=== PATIENT | male | born 1950 | race Caucasian/White ===

== ENCOUNTER 2022-12-21 16:56 | Inpatient (IN) ==
--- NOTE | 2022-12-21 17:57 | XRay Report ---
XR chest 1V portable CLINICAL HISTORY: illness COMPARISON STUDY: No previous studies for comparison. FINDINGS: Patient is rotated. Right shoulder arthroplasty is incidentally noted. No pneumothorax or p leural effusion is present. There is no consolidation or evidence for pulmonary edema. Minimal left b asilar opacity favors atelectasis. IMPRESSION: No acute cardiopulmonary findings. ACT 112: Negative or not required by law. Electronically signed by: Kamar Elizalde M.D. 12/21/2022 5:55 PM
[2022-12-21] MEDS ORDERED: SODIUM CHLORIDE 0.9% 1000ML 1,000 ML IV ONE (19:38)
--- NOTE | 2022-12-21 19:41 | Emergency Department Note ---
Impression & Plan SBO (small bowel obstruction) ADMIT ED Provider Note HPI: The patient is a 72-year-old gentleman with history of stroke in October 2022, [facility] department with his son and at the bedside over concern for declining ambulatory status, weight loss, and inability to tolerate p.o. intake over the past several weeks. Nataly shaffer was discharged from [facility] about 2 weeks ago, he has not been doing well at home according to family. He has been able to eat only small amounts of food, frequently has vomiting. He has fallen 5-6 times according to his . On arrival here to the ED the patient is hemodynamically stable, he is alert, he is an overall poor historian and family is serving most of the history. They went to see the patient's PCP today and advised to come to the emergency department to be assessed for his symptoms and possible placement at the request of family and at the advice of his PCP. ROS: - Per HPI *Outpatient medications and allergy history reviewed. *Pertinent external medical records reviewed. 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 Mild bilateral lower lobe atelectasis. Normal cardiac size. Mild atherosclerotic disease of aorta with no aneurysm or dissection. Unremarkable stomach with minimal hiatal hernia. Nonvisualized gallbladder suggestive of prior cholecystectomy or severe contraction. Otherwise normal liver and biliary system. Normal spleen and pancreas. Normal bilateral adrenal glands. Right simple renal cysts, largest seen in the lower pole measuring 2.4 cm. Otherwise normal right kidney. Normal left kidney. Mild distention of some of the proximal small bowel loops up to 2.9 cm, concerning for very early small bowel obstruction versus localized ileus. Diverticulosis more so through the sigmoid with no signs of diverticulitis. The appendix is normal. Normal urinary bladder. Mild prostate enlargement. Mild bilateral fat-containing inguinal hernias, right larger than left. Degenerative disease of the spine. Radiologist: Ping Ruffin MD Medical Decision Making: Patient presented to the emergency department with some generalized decline at home over the past several weeks, he has had some ambulatory dysfunction, generally not tolerating p.o. intake very well according to and son at the bedside. On arrival here to the ED the patient is hemodynamically stable, he is otherwise in no acute distress, he is alert and at his baseline mentation on arrival. IV is established, lab work obtained, CT imaging of the abdomen pelvis was ordered. Patient was given a normal saline bolus. CT imaging of the abdomen pelvis shows possible early small bowel obstruction versus localized ileus. This is likely the source of the patient's diminished p.o. intake. Appendix appears normal. Lab work otherwise does not show any critical findings, CBC shows stable hemoglobin, no leukocytosis. No critical electrolyte abnormalities are noted. On reassessment patient appears well, family states that they are concerned that they are unable to take care of him at home, they are requesting admission for possible placement which I think is reasonable given his decline over the past several weeks in addition to finding of possible small bowel obstruction versus ileus on CT imaging. Patient has not had any active vomiting here in the ED therefore will avoid NG tube placement at this time. Case was discussed with the on-call hospitalist for [facility], Dr. Britton, the patient was placed for admission in stable condition. Consultants: Hospitalist service, Dr. Tsang Disposition discussion held by myself with: Patient, at bedside, son at bedside Diagnosis: 1. Ambulatory dysfunction, acute 2. Nausea and vomiting, diminished p.o. intake 3. Early small bowel obstruction versus ileus on CT imaging 4. History of stroke Disposition: Admission Blake Maya DO Emergency Medicine Past Med/Surg History Medical History (Updated 12/21/22 @ 23:34 by Blake Maya DO) Diabetes Hypertension Social History (Updated 11/09/22 @ 20:19 by Romana Lisa MD) Smoking Status: Never smoker Preferred Language: Sami marital status: Feels Safe at Home: Yes Allergies Allergies Allergy/AdvReac Type Severity Reaction Status Date / Time bee venom protein (honey bee) Allergy Anaphylaxis Verified 12/21/22 20:00 codeine Allergy Anaphylaxis Verified 12/21/22 20:00 Home Meds Home Medications Medication Instructions Recorded Confirmed aspirin 81 mg tablet,delayed 81 mg PO QAM 12/21/22 12/21/22 release atorvastatin 40 mg tablet 40 mg PO QAM 12/21/22 12/21/22 celecoxib 200 mg capsule 200 mg PO BID 12/21/22 12/21/22 empagliflozin 10 mg tablet 10 mg PO QAM 12/21/22 12/21/22 lisinopril 10 mg tablet 5 mg PO QAM 12/21/22 12/21/22 metformin 500 mg tablet 500 mg PO BIDWMEAL 12/21/22 12/21/22 ropinirole 2 mg tablet 3 mg PO HS 12/21/22 12/21/22 tamsulosin 0.4 mg capsule 0.4 mg PO QAM 12/21/22 12/21/22 Results & Data (ED) Vital Signs Vital Signs - 24 hr 12/21/22 17:16 Temperature 36.7 C Temperature Source Temporal Artery Scan Pulse Rate 86 Respiratory Rate 20 Respiratory Effort / Characteristics Non-Labored Spontaneous Respiratory Depth Normal Respiratory Pattern Regular Blood Pressure 103/70 Blood Pressure Mean 81 Pulse Oximetry 92 Oxygen Delivery Method Room Air Sepsis Recent Fever Within 48 Hours No Sepsis New/Unexplained Change in Mental Status No Sepsis Action Taken by Nursing No Action Required Laboratory Data 12/21/22 19:57 12/21/22 19:57 Lab Results 12/21/22 12/21/22 12/21/22 Range/Units 19:57 19:57 20:20 WBC 7.71 (4.8-10.8) K/ul RBC 5.32 (4.70-6.10) M/uL Hgb 16.8 (14.0-18.0) g/dl Hct 47.9 (42.0-52.0) % MCV 90.0 (80.0-100.0) fL MCH 31.6 (25.0-34.0) pg MCHC 35.1 (32.0-36.0) g/dL RDW Std Deviation 46.1 (36.4-46.3) fL RDW Coeff of Sergio 14.1 (11.5-14.5) % Plt Count 212 (130-400) K/uL MPV 9.8 (9.4-12.4) fL Immature Gran % (Auto) 0.5 % Neut % (Auto) 73.4 % Lymph % (Auto) 16.0 % Rock % (Auto) 8.3 % Eos % (Auto) 0.9 % Baso % (Auto) 0.9 % Neut # (Auto) 5.66 (1.40-6.50) K/uL Lymph # (Auto) 1.23 (1.2-3.4) K/uL Rock # (Auto) 0.64 H (0.11-0.59) K/uL Eos # (Auto) 0.07 (0-0.50) K/uL Baso # (Auto) 0.07 (0-0.2) K/uL Immature Gran # (Auto) 0.04 (0.01-0.20) K/uL Sodium 136 (136-145) mmol/L Potassium 4.9 (3.5-5.1) mmol/L Chloride 101 (98-107) mmol/L Carbon Dioxide 26 (21-32) mmol/L Anion Gap 9 (3-11) BUN 36 H (6-23) mg/dl Creatinine 1.29 (0.6-1.4) mg/dl Est Cr Clr Drug Dosing Not Reportable Est GFR ( Amer) 62.9 ml/min Est GFR (Non-Af Amer) 54.3 ml/min BUN/Creatinine Ratio 27.9 H (10-20) Glucose 125 H (70-99(Fasting)) mg/dl Calcium 10.6 H (8.5-10.1) mg/dl Total Bilirubin 4.2 H (0.2-1.0) mg/dl AST 31 (13-39) U/L ALT 58 H (7-52) U/L Alkaline Phosphatase 100 (34-104) U/L Total Protein 7.8 (6.0-8.3) gm/dl Albumin 4.4 (3.4-5.0) gm/dl Globulin 3.4 (2.5-4.0) gm/dl Albumin/Globulin Ratio 1.3 (0.9-2) SARS-CoV-2 (PCR) NEGATIVE (Negative) Administered Medications Discontinued Medications Sodium Chloride (Nss 1000ml) 1,000 mls @ 999 mls/hr IV .Q1H1M ONE Stop: 12/21/22 20:38 Last Admin: 12/21/22 20:06 Dose: 999 mls/hr Documented By: RDMamie Ioversol (Optiray 350 100ml) 85 ml IV ONCE ONE Stop: 12/21/22 21:21 Last Admin: 12/21/22 21:20 Dose: 85 ml Documented By: EDK Imaging Data Radiologist's Impression: Chest X-Ray 12/21/22 17:19 XR chest 1V portable CLINICAL HISTORY: illness COMPARISON STUDY: No previous studies for comparison. FINDINGS: Patient is rotated. Right shoulder arthroplasty is incidentally noted. No pneumothorax or pleural effusion is present. There is no consolidation or evidence for pulmonary edema. Minimal left basilar opacity favors atelectasis. IMPRESSION: No acute cardiopulmonary findings. ACT 112: Negative or not required by law. Electronically signed by: Kamar Elizalde M.D. 12/21/2022 5:55 PM Discharge Plan Visit Data Chief Complaint: Referred by Doctor Stated Complaint: VOMIT,UNABLE TO EAT,DIZZY,REF BY DOC ED Provider: Blake Maya Discharge Problem: SBO (small bowel obstruction) Patient Disposition: Admitted As Inpatient Forms Stand Alone Forms: [facility], Virtual Emergency Department, Important Visit Information Prescriptions Prescriptions: No Action celecoxib 200 mg Capsule 200 mg PO BID atorvastatin 40 mg Tablet 40 mg PO QAM metformin 500 mg Tablet 500 mg PO BIDWMEAL aspirin [Aspirin Low-Strength] 81 mg Tablet,Delayed Release (Dr/Ec) 81 mg PO QAM tamsulosin 0.4 mg Capsule 0.4 mg PO QAM ropinirole 2 mg Tablet 3 mg PO HS Rx Instructions: take 1.5 tablets at bedtime lisinopril 10 mg Tablet 5 mg PO QAM Rx Instructions: 1/2 tablet dose empagliflozin 10 mg Tablet 10 mg PO QAM Referrals Referrals: Garth Jerome DO [Primary Care Provider] -
[2022-12-21 20:21] LABS: Basophils # (auto) 0.07 K/uL (0-0.2); Basophils % (auto) 0.9 %; Eosinophils # (auto) 0.07 K/uL (0-0.50); Eosinophils % (auto) 0.9 %; Hematocrit (blood only) 47.9 % (42.0-52.0); Hemoglobin 16.8 g/dl (14.0-18.0); Immature Granulocytes # (auto) 0.04 K/uL (0.01-0.20); Immature Granulocytes % (auto) 0.5 %; Lymphocytes # (auto) 1.23 K/uL (1.2-3.4); Mean Corpuscular Hemoglobin 31.6 pg (25.0-34.0); Mean Corpuscular Hgb Conc 35.1 g/dL (32.0-36.0); Mean Platelet Volume 9.8 fL (9.4-12.4); Monocytes # (auto) 0.64 K/uL (0.11-0.59); Monocytes % (auto) 8.3 %; Neutrophils # (auto) 5.66 K/uL (1.40-6.50); Neutrophils % (auto) 73.4 %; Platelet Count 212 K/uL (130-400); RDW Coefficient of Variation 14.1 % (11.5-14.5); RDW Standard Deviation 46.1 fL (36.4-46.3); Red Blood Count 5.32 M/uL (4.70-6.10); White Blood Count 7.71 K/ul (4.8-10.8)
[2022-12-21 20:31] LABS: Alanine Aminotransferase 58 U/L (7-52); Albumin Globulin Ratio 1.3 (0.9-2); Albumin Level 4.4 gm/dl (3.4-5.0); Alkaline Phosphatase 100 U/L (34-104); Anion Gap 9 (3-11); Aspartate Aminotransferase 31 U/L (13-39); BUN Creatinine Ratio 27.9 (10-20); Bilirubin,Total 4.2 mg/dl (0.2-1.0); Blood Urea Nitrogen 36 mg/dl (6-23); Calcium 10.6 mg/dl (8.5-10.1); Carbon Dioxide 26 mmol/L (21-32); Chloride 101 mmol/L (98-107); Est GFR (African American) 62.9 ml/min; Est GFR (Non-African American) 54.3 ml/min; Globulin 3.4 gm/dl (2.5-4.0); Glucose 125 mg/dl (70-99(Fasting)); Potassium 4.9 mmol/L (3.5-5.1); Sodium 136 mmol/L (136-145); Total Protein 7.8 gm/dl (6.0-8.3)
[2022-12-21] MEDS ORDERED: OPTIRAY 350 100ml IV ONE (21:20)
[2022-12-21] MEDS ORDERED: SODIUM CHLORIDE 0.9% 1000ML 1,000 ML IV STA (23:11)
[2022-12-22 00:15] LABS: Magnesium 2.1 mg/dl (1.7-2.4)
--- NOTE | 2022-12-22 00:28 | History & Physical Report ---
Date of Service December 22, 2022 Assessment & Plan (1) Vomiting: Plan: Ileus versus beginning partial SBO on initial CT read Patient currently nontoxic Dizziness symptoms Rule out orthostasis given borderline BP recent ischemic CVA hypertension, BP on the lower side PVD status post surgery mild aortic stenosis DM2 on oral medications, suboptimal control as of recent hemoglobin A1c of 7.9 last October 2022 restless leg syndrome on ropinirole Ambulatory dysfunction post CVA post recent rehab stay BPH on Flomax OBS GMF Bowel rest for now, IVF Follow official CT results General Surgery consult if partial SBO on official CT NGT decompression if with subsequent emesis Check orthostatic vitals Decrease maintenance lisinopril dose for now Consider decreasing maintenance ropinirole dose if orthostatics vitals positive and patient still symptomatic with lower lisinopril dose. Basal bolus insulin, ISS BG goal 1 10-1 40, carb count coverage PT OT eval DVT prophylaxis. Lovenox subcu Full code Patient requests for his to be updated of progress. Ms. Deyanira Esparza, contact #[phone]. Text document was generated using [employer] voice recognition software. It may contain grammatical or spelling errors. Kindly contact undersigned for clarification of any documentation item in question. History of Present Illness Chief Complaint: Vomiting, Weakness Primary Care Provider: Garth Jerome DO History obtained from patient and records. Medical history significant for recent ischemic stroke, hypertension, PVD status post surgery, mild aortic stenosis, DM2 on oral medications, restless leg syndrome, BPH. Last confinement [facility] November 08, 2022 to November 13, 2022 for acute right MCA stroke and possible dissection of the right internal carotid artery angioplasty with stent placement and thrombectomy. Stent reocclusion during hospital stay. Mild aortic stenosis found on 2D echo. Hemoglobin A1c noted to be 7.9. Patient discharged to [facility] facility where he stayed for 2 weeks before returning home. Since being home the last few weeks, patient appetite not the best. Emesis without abdominal pain. No headache, no chest pain, no SOB. Syncope, no seizures. Good BM as per patient. Some depression but denies suicidality. Patient falling a lot at home after standing. Dizziness described as lightheadedness preceding falls. Patient brought to ER for evaluation. Medical History as above Surgical History : Umbilical hernia repair, cholecystectomy, shoulder surgery, knee replacements Family History : Breast cancer Personal/Social history : Non-smoker, occasional EtOH intake, [employer] employee Allergies Allergy/AdvReac Type Severity Reaction Status Date / Time bee venom protein (honey bee) Allergy Anaphylaxis Verified 12/21/22 20:00 codeine Allergy Anaphylaxis Verified 12/21/22 20:00 Home Medications Medication Instructions Recorded Confirmed Type aspirin 81 mg tablet,delayed 81 mg PO QAM 12/21/22 12/21/22 History release atorvastatin 40 mg tablet 40 mg PO QAM 12/21/22 12/21/22 History celecoxib 200 mg capsule 200 mg PO BID 12/21/22 12/21/22 History empagliflozin 10 mg tablet 10 mg PO QAM 12/21/22 12/21/22 History lisinopril 10 mg tablet 5 mg PO QAM 12/21/22 12/21/22 History metformin 500 mg tablet 500 mg PO BIDWMEAL 12/21/22 12/21/22 History ropinirole 2 mg tablet 3 mg PO HS 12/21/22 12/21/22 History tamsulosin 0.4 mg capsule 0.4 mg PO QAM 12/21/22 12/21/22 History Past Med/Surg History Medical History (Updated 12/22/22 @ 05:46 by Quincy Blair MD) Diabetes Hypertension Social History (Updated 11/09/22 @ 20:19 by Romana Lisa MD) Smoking Status: Never smoker Hx Alcohol Use: No Hx Substance Use: No Preferred Language: [place] Communication Ability: Effective 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 Beliefs That Will Affect Care: None marital status: Current Living Situation: Spouse Other Information That Helps Us Care for You: No Feels Safe at Home: Yes Safety Concerns: Feels Safe At This Time Assistive Devices: Contacts, Hearing Aid - Left, Hearing Aid - Right and Walker Review of Systems Review of Systems: As per HPI, all other systems reviewed and negative Physical Exam Physical Exam: GENERAL: Comfortable, pleasant, mild dysarthria, no respiratory distress SKIN: Normal color, warm HEENT: [place] palpebral conjunctivae, no ptosis, flattened left nasolabial fold (chronic), dry buccal mucosa NECK : Supple, no tenderness CHEST : CTA, no tenderness HEART : RRR, no obvious murmurs ABDOMEN: Some distention, nontender EXTREMITIES : No LE swelling/tenderness, no other conspicuous deformities noted NEUROLOGIC : Coherent, flattened left nasolabial fold (chronic), mild dysarthria, MMTs : RUE/RLE 4/5, LUE/LLE 3/5; gait and stance not assessed Results & Data Results & Data ([facility]) Vital Signs (Past 12 Hours) Vital Signs Temp Pulse Resp BP Pulse Ox O2 Del Method 12/21/22 17:16 36.7 C 86 20 103/70 92 Room Air Laboratory Results Laboratory Results WBC 7.71 K/ul (4.8-10.8) 12/21/22 19:57 RBC 5.32 M/uL (4.70-6.10) 12/21/22 19:57 Hgb 16.8 g/dl (14.0-18.0) 12/21/22 19:57 Hct 47.9 % (42.0-52.0) 12/21/22 19:57 MCV 90.0 fL (80.0-100.0) 12/21/22 19:57 MCH 31.6 pg (25.0-34.0) 12/21/22 19:57 MCHC 35.1 g/dL (32.0-36.0) 12/21/22 19:57 RDW Std Deviation 46.1 fL (36.4-46.3) 12/21/22 19:57 RDW Coeff of Sergio 14.1 % (11.5-14.5) 12/21/22 19:57 Plt Count 212 K/uL (130-400) 12/21/22 19:57 MPV 9.8 fL (9.4-12.4) 12/21/22 19:57 Immature Gran % (Auto) 0.5 % 12/21/22 19:57 Neut % (Auto) 73.4 % 12/21/22 19:57 Lymph % (Auto) 16.0 % 12/21/22 19:57 [place] % (Auto) 8.3 % 12/21/22 19:57 Eos % (Auto) 0.9 % 12/21/22 19:57 Baso % (Auto) 0.9 % 12/21/22 19:57 Neut # (Auto) 5.66 K/uL (1.40-6.50) 12/21/22 19:57 Lymph # (Auto) 1.23 K/uL (1.2-3.4) 12/21/22 19:57 [place] # (Auto) 0.64 K/uL (0.11-0.59) H 12/21/22 19:57 Eos # (Auto) 0.07 K/uL (0-0.50) 12/21/22 19:57 Baso # (Auto) 0.07 K/uL (0-0.2) 12/21/22 19:57 Immature Gran # (Auto) 0.04 K/uL (0.01-0.20) 12/21/22 19:57 Sodium 136 mmol/L (136-145) 12/21/22 19:57 Potassium 4.9 mmol/L (3.5-5.1) 12/21/22 19:57 Chloride 101 mmol/L (98-107) 12/21/22 19:57 Carbon Dioxide 26 mmol/L (21-32) 12/21/22 19:57 Anion Gap 9 (3-11) 12/21/22 19:57 BUN 36 mg/dl (6-23) H 12/21/22 19:57 Creatinine 1.29 mg/dl (0.6-1.4) 12/21/22 19:57 Est Cr Clr Drug Dosing Not Reportable 12/21/22 19:57 Est GFR ( Amer) 62.9 ml/min 12/21/22 19:57 Est GFR (Non-Af Amer) 54.3 ml/min 12/21/22 19:57 BUN/Creatinine Ratio 27.9 (10-20) H 12/21/22 19:57 Glucose 125 mg/dl (70-99(Fasting)) H 12/21/22 19:57 Calcium 10.6 mg/dl (8.5-10.1) H 12/21/22 19:57 Magnesium 2.1 mg/dl (1.7-2.4) 12/21/22 19:57 Total Bilirubin 4.2 mg/dl (0.2-1.0) H 12/21/22 19:57 AST 31 U/L (13-39) 12/21/22 19:57 ALT 58 U/L (7-52) H 12/21/22 19:57 Alkaline Phosphatase 100 U/L (34-104) 12/21/22 19:57 Total Protein 7.8 gm/dl (6.0-8.3) 12/21/22 19:57 Albumin 4.4 gm/dl (3.4-5.0) 12/21/22 19:57 Globulin 3.4 gm/dl (2.5-4.0) 12/21/22 19:57 Albumin/Globulin Ratio 1.3 (0.9-2) 12/21/22 19:57 SARS-CoV-2 (PCR) NEGATIVE (Negative) 12/21/22 20:20 Impressions Chest X-Ray 12/21/22 17:19 XR chest 1V portable CLINICAL HISTORY: illness COMPARISON STUDY: No previous studies for comparison. FINDINGS: Patient is rotated. Right shoulder arthroplasty is incidentally noted. No pneumothorax or pleural effusion is present. There is no consolidation or evidence for pulmonary edema. Minimal left basilar opacity favors atelectasis. IMPRESSION: No acute cardiopulmonary findings. ACT 112: Negative or not required by law. Electronically signed by: Kamar Elizalde M.D. 12/21/2022 5:[address] abdomen pelvis initial read: Bilateral lower lobe atelectasis. Normal cardiac size. Mild atherosclerotic disease of aorta with no aneurysm or dissection. Unremarkable stomach with minimal hiatal hernia. Nonvisualized gallbladder suggestive of prior cholecystectomy or severe contraction. Otherwise normal liver and biliary system. Normal spleen and pancreas. Normal bilateral adrenal glands. Right simple renal cysts, largest seen in the lower pole measuring 2.4 cm. Otherwise normal right kidney. Normal left kidney. Mild distention of some of the proximal small bowel loops up to 2.9 cm, concerning for very early small bowel obstruction versus localized ileus. Diverticulosis more so through the sigmoid with no signs of diverticulitis. The appendix is normal. Normal urinary bladder. Mild prostate enlargement. Mild bilateral fat-containing inguinal hernias, right larger than left. Degenerative disease of the spine. EKG as per my interpretation :Rate 70, NSR, LAD, LAFB, LVH, no ischemia
[2022-12-22] MEDS ORDERED: GLUCAGON FOR INJ 1 MG VIAL SQ PRN (03:59)
[2022-12-22] MEDS ORDERED: DEXTROSE 50% 50 ML SYRINGE IV PRN (03:59)
[2022-12-22] MEDS ORDERED: CARBOHYDRATES FOR HYPOGLYCEMIA PO PRN (03:59)
[2022-12-22] MEDS ORDERED: GLUCOSE 40% GEL 15 GM TUBE PO PRN (03:59)
[2022-12-22] MEDS ORDERED: GLUCOSE 10 TAB/TUBE PO PRN (03:59)
[2022-12-22] MEDS ORDERED: INSULIN ASPART PER UNIT SC SCH (04:30)
[2022-12-22] MEDS: SODIUM CHLORIDE 0.9% 1000ML 1,000 ML IV SCH ×2 (05:54→18:03)
[2022-12-22] MEDS: INSULIN ASPART PER UNIT SC SCH ×4 (06:04→20:18)
[2022-12-22 06:11] LABS: Appearance Urine Clear (Clear); Bilirubin Urine Negative (Negative); Blood Urine Negative (Negative); Color Urine Yellow; Glucose Urine UA 1+ (Negative); Ketones Urine 2+ (Negative); Leukocyte Esterase Urine Negative (Negative); Nitrite Urine Negative (Negative); Protein Urine Negative (Negative); Specific Gravity Urine > 1.045 (1.000-1.030); Urobilinogen Urine Negative (Negative)
[2022-12-22 06:34] LABS: Basophils # (auto) 0.07 K/uL (0-0.2); Basophils % (auto) 0.8 %; Eosinophils # (auto) 0.26 K/uL (0-0.50); Eosinophils % (auto) 3.1 %; Hemoglobin 15.2 g/dl (14.0-18.0); Immature Granulocytes # (auto) 0.03 K/uL (0.01-0.20); Immature Granulocytes % (auto) 0.4 %; Lymphocytes # (auto) 1.23 K/uL (1.2-3.4); Lymphocytes % (auto) 14.8 %; Mean Corpuscular Hemoglobin 32.1 pg (25.0-34.0); Mean Corpuscular Hgb Conc 35.3 g/dL (32.0-36.0); Mean Corpuscular Volume 90.9 fL (80.0-100.0); Mean Platelet Volume 9.8 fL (9.4-12.4); Monocytes # (auto) 0.69 K/uL (0.11-0.59); Monocytes % (auto) 8.3 %; Neutrophils # (auto) 6.02 K/uL (1.40-6.50); Neutrophils % (auto) 72.6 %; Platelet Count 178 K/uL (130-400); RDW Standard Deviation 46.5 fL (36.4-46.3); Red Blood Count 4.73 M/uL (4.70-6.10)
[2022-12-22 06:51] LABS: BUN Creatinine Ratio 26.1 (10-20); Calcium 9.6 mg/dl (8.5-10.1); Creatinine Clr Calc Pharmacy 58.2 ml/min; Est GFR (African American) 72.3 ml/min; Est GFR (Non-African American) 62.3 ml/min; Potassium 4.6 mmol/L (3.5-5.1)
[2022-12-22] MEDS: ENOXAPARIN INJ 40 MG/0.4 ML SYR SQ SCH (08:08)
[2022-12-22] MEDS: lisinopril 2.5 MG TAB PO SCH (08:08)
[2022-12-22] MEDS: ASPIRIN 81 MG ECTAB PO SCH (08:08)
[2022-12-22] MEDS: TAMSULOSIN HCL 0.4 MG CAP PO SCH (08:08)
[2022-12-22] MEDS: ATORVASTATIN 40 MG TAB PO SCH (08:08)
[2022-12-22] MEDS: LANTUS PER UNIT CHARGE SQ SCH (08:52)
[2022-12-22] MEDS ORDERED: lisinopril 5 MG TAB PO SCH (09:00)
--- NOTE | 2022-12-22 09:16 | CT Scan Report ---
ABDOMEN AND PELVIS CT WITH IV CONTRAST CT DOSE: 503.65 mGy.cm HISTORY: Nausea. Vomiting., can not eat, eval for SBO TECHNIQUE: Multiaxial CT images of the abdomen and pelvis were performed following the use of intrave nous contrast. A dose lowering technique was utilized adhering to the principles of ALARA. COMPARISON STUDY: None. FINDINGS: Mild dependent changes seen within the lung bases. No pneumoperitoneum. No pneumatosis. No acute fractures identified. There is a small hiatus hernia. Cholecystectomy. The liver, spleen, adren al glands, and pancreas are unremarkable. No hydronephrosis. The left kidney enhances normally. There are 2 hypodense lesions within the right kidney which favor cysts. The largest in the lower pole iris sures 2.2 cm. No retroperitoneal lymphadenopathy. The main portal vein is patent. There is a left cir cumaortic renal vein. The bladder is unremarkable. The prostate gland is enlarged. There are fat-cont aining bilateral inguinal hernias. Colonic diverticulosis. No evidence for acute diverticulitis. No b owel wall thickening or obstruction. Normal appendix. IMPRESSION: 1. No bowel wall thickening or obstruction. 2. Normal appendix. 3. Colonic diverticulosis. No evidence for acute diverticulitis. 4. Prostatomegaly. ACT 112: Negative or not required by law. Electronically signed by: Rahul Markham M.D. 12/22/2022 9:15 AM
[2022-12-22] MEDS ORDERED: SODIUM CHLORIDE 0.9% 1000ML 1,000 ML IV SCH (09:30)
--- NOTE | 2022-12-22 15:25 | Hospitalist Progress Note ---
Date of Service December 22, 2022 Assessment & Plan (1) Vomiting: Plan: Nausea and vomiting Likely secondary to dysphagia as sequelae of recent CVA Bowel obstruction ruled out --CT ABD:No bowel wall thickening or obstruction. Normal appendix. Colonic di verticulosis. No evidence for acute diverticulitis. Prostatomegaly. 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 meds HbA1c 7.19 October 2022 Continue insulin while hospitalized Restless leg syndrome on ropinirole DVT Px: Lovenox SQ Code Status Full code Admission and Anticipated Discharge Date Admission Date: December 22, 2022 Subjective Patient is seen and examined at bedside Nausea, vomiting resolved States having dysphagia since having CVA Denies any chest pain, dyspnea, dizziness, abdominal pain No other complaints Review of Systems Review of Systems: All systems reviewed & are unremarkable except as noted in Subjective Physical Exam Physical Exam: Physical Exam: Vitals signs as noted above General Appearance:Moderately built and nourished, no apparent distress Head: normocephalic, Atraumatic Eyes: normal inspection, EOMI Neck: supple, Trachea midline Respiratory/Chest: Normal breath sounds, CTA, No accessory muscle use Cardiovascular: S1, S2, + murmur Abdomen/GI:Soft, Non tender, Bowel sounds present Extremities/Musculoskeletal:normal inspection, no edema Neurologic/Psych:AAOX3, Mild L LE weakness 4/5 Skin: normal color, warm Results & Data Results & Data ([facility]) Vital Signs (Past 12 Hours) Vital Signs Temp Pulse Resp BP Pulse Ox O2 Del Method 12/22/22 14:28 36.7 C 78 16 112/74 94 Room Air 12/22/22 07:25 36.7 C 55 L 16 101/65 96 Room Air 12/22/22 03:45 36 C L 64 16 134/81 93 Room Air Laboratory Results Short CBC 12/21/22 12/22/22 Range/Units 19:57 06:12 WBC 7.71 8.30 (4.8-10.8) K/ul Hgb 16.8 15.2 (14.0-18.0) g/dl Hct 47.9 43.0 (42.0-52.0) % Plt Count 212 178 (130-400) K/uL BMP 12/21/22 12/22/22 19:57 06:12 Sodium 136 137 Potassium 4.9 4.6 Chloride 101 105 Carbon Dioxide 26 24 BUN 36 H 30 H Creatinine 1.29 1.15 Glucose 125 H 96 Calcium 10.6 H 9.6 Liver Function 12/21/22 Range/Units 19:57 Total Bilirubin 4.2 H (0.2-1.0) mg/dl AST 31 (13-39) U/L ALT 58 H (7-52) U/L Alkaline Phosphatase 100 (34-104) U/L Albumin 4.4 (3.4-5.0) gm/dl Urine 12/22/22 Range/Units 06:00 Urine Color Yellow Urine Appearance Clear (Clear) Urine pH 5.0 (4.5-7.5) Ur Specific [place] > 1.045 H (1.000-1.030) Urine Protein Negative (Negative) Urine Glucose (UA) 1+ H (Negative)
[2022-12-22] MEDS ORDERED: Nursing to Pharmacy Communication SCH (17:00)
[2022-12-22] MEDS ORDERED: SODIUM CHLORIDE 0.9% 1000ML 1,000 ML IV ONE (19:19)
[2022-12-22] MEDS: rOPINIRole HCL 1 MG TABLET PO SCH (20:15)
--- NOTE | 2022-12-22 22:40 | Electrocardiogram Report ---
Test Reason : Blood Pressure : / mmHG Vent. Rate : 071 BPM Atrial Rate : 071 BPM P-R Int : 192 ms QRS Dur : 126 ms QT Int : 418 ms P-R-T Axes : 066 -50 105 degrees QTc Int : 454 ms Poor data quality, interpretation may be adversely affected Normal sinus rhythm Left axis deviation Left ventricular hypertrophy with QRS widening and repolarization abnormality Possible Anterolateral infarct , age undetermined Abnormal ECG When compared with ECG of 08-NOV-2022 08:19, Borderline criteria for Anterolateral infarct are now Present Confirmed by Tonio Monroy ([id number]) on 12/22/2022 10:40:11 PM Referred By: Garth Jerome Confirmed By:Tonio Monroy
[2022-12-22] MEDS: PROMETHAZINE HCL 12.5 MG in SODIUM CHLORIDE 0.9% 50 ML IV PRN (23:43)
[2022-12-23 06:27] LABS: Hematocrit (blood only) 39.6 % (42.0-52.0); Hemoglobin 13.8 g/dl (14.0-18.0); Mean Corpuscular Hemoglobin 31.6 pg (25.0-34.0); Mean Corpuscular Hgb Conc 34.8 g/dL (32.0-36.0); Mean Corpuscular Volume 90.6 fL (80.0-100.0); Mean Platelet Volume 9.9 fL (9.4-12.4); Platelet Count 155 K/uL (130-400); RDW Coefficient of Variation 13.9 % (11.5-14.5); RDW Standard Deviation 46.3 fL (36.4-46.3); Red Blood Count 4.37 M/uL (4.70-6.10); White Blood Count 6.97 K/ul (4.8-10.8)
[2022-12-23 06:42] LABS: BUN Creatinine Ratio 25.3 (10-20); Calcium 9.2 mg/dl (8.5-10.1); Creatinine Clr Calc Pharmacy 76.9 ml/min; Est GFR (African American) 98.5 ml/min; Magnesium 1.7 mg/dl (1.7-2.4); Potassium 4.2 mmol/L (3.5-5.1)
[2022-12-23] MEDS: ENOXAPARIN INJ 40 MG/0.4 ML SYR SQ SCH (08:59)
[2022-12-23] MEDS: lisinopril 2.5 MG TAB PO SCH (08:59)
[2022-12-23] MEDS: INSULIN ASPART PER UNIT SC SCH ×4 (08:59→21:22)
[2022-12-23] MEDS: ATORVASTATIN 40 MG TAB PO SCH (08:59)
[2022-12-23] MEDS: ASPIRIN 81 MG ECTAB PO SCH (08:59)
[2022-12-23] MEDS: TAMSULOSIN HCL 0.4 MG CAP PO SCH (08:59)
[2022-12-23] MEDS: LANTUS PER UNIT CHARGE SQ SCH (09:00)
--- NOTE | 2022-12-23 17:00 | Hospitalist Progress Note ---
Date of Service December 23, 2022 Assessment & Plan (1) Vomiting: Plan: Nausea and vomiting Likely secondary to dysphagia as sequelae of recent CVA Bowel obstruction ruled out --CT ABD:No bowel wall thickening or obstruction. Normal appendix. Colonic di verticulosis. No evidence for acute diverticulitis. Prostatomegaly. -- Aspiration precautions Did well with speech therapy Advance to regular diet today If dysphagia persist, will consider GI evaluation Dizziness DD: Due to recent CVA Vs orthostasis Check Orthostatics Asymptomatic currently Multiple falls Ambulatory dysfunction Due to left-sided weakness from CVA Fall precautions PT OT: Needs Rehab Recent right MCA occlusion S/P MCA mechanical thrombectomy Right internal carotid artery occlusion S/P angioplasty and stent Left hemiplegia secondary to above Dysarthria secondary to above Continue aspirin, statin Hypertension Blood pressure relatively low Continue lisinopril with holding parameters BPH On tamsulosin DM II Hold p.o. meds HbA1c 7.19 October 2022 Continue insulin while hospitalized Restless leg syndrome on ropinirole DVT Px: Lovenox SQ Code Status Full code Admission and Anticipated Discharge Date Admission Date: December 23, 2022 Subjective Patient is seen and examined at bedside States feeling well today Generalized weakness improving Had speech therapy evaluation today Denies any chest pain, dyspnea, dizziness, abdominal pain Review of Systems 2 Review of Systems: All systems reviewed & are unremarkable except as noted in Subjective Physical Exam Physical Exam: Physical Exam: Vitals signs as noted above General Appearance:Moderately built and nourished, no apparent distress Head: normocephalic, Atraumatic Eyes: normal inspection, EOMI Neck: supple, Trachea midline Respiratory/Chest: Normal breath sounds, CTA, No accessory muscle use Cardiovascular: S1, S2, + murmur Abdomen/GI:Soft, Non tender, Bowel sounds present Extremities/Musculoskeletal:normal inspection, no edema Neurologic/Psych:AAOX3, Mild L LE weakness 4/5 Skin: normal color, warm Results & Data Results & Data ([facility]) Vital Signs (Past 12 Hours) Vital Signs Temp Pulse Resp BP Pulse Ox O2 Del Method 12/23/22 14:30 36.5 C 76 16 110/65 94 Room Air 12/23/22 07:28 36.5 C 57 L 16 117/70 95 Room Air Laboratory Results Short CBC 12/23/22 Range/Units 06:08 WBC 6.97 (4.8-10.8) K/ul Hgb 13.8 L (14.0-18.0) g/dl Hct 39.6 L (42.0-52.0) % Plt Count 155 (130-400) K/uL BMP 12/23/22 06:08 Sodium 138 Potassium 4.2 Chloride 108 H Carbon Dioxide 23 BUN 22 Creatinine 0.87 Glucose 97 Calcium 9.2
[2022-12-23] MEDS: rOPINIRole HCL 1 MG TABLET PO SCH (20:16)
[2022-12-24] MEDS: INSULIN ASPART PER UNIT SC SCH ×4 (08:32→21:27)
[2022-12-24] MEDS: ENOXAPARIN INJ 40 MG/0.4 ML SYR SQ SCH (08:33)
[2022-12-24] MEDS: lisinopril 2.5 MG TAB PO SCH (08:33)
[2022-12-24] MEDS: TAMSULOSIN HCL 0.4 MG CAP PO SCH (08:33)
[2022-12-24] MEDS: ASPIRIN 81 MG ECTAB PO SCH (08:33)
[2022-12-24] MEDS: ATORVASTATIN 40 MG TAB PO SCH (08:33)
[2022-12-24] MEDS: LANTUS PER UNIT CHARGE SQ SCH (08:34)
[2022-12-24 08:52] LABS: Hematocrit (blood only) 43.7 % (42.0-52.0); Hemoglobin 15.2 g/dl (14.0-18.0); Mean Corpuscular Hemoglobin 31.7 pg (25.0-34.0); Mean Corpuscular Hgb Conc 34.8 g/dL (32.0-36.0); Platelet Count 179 K/uL (130-400); RDW Coefficient of Variation 14.1 % (11.5-14.5); White Blood Count 6.74 K/ul (4.8-10.8)
[2022-12-24 09:12] LABS: BUN Creatinine Ratio 19.5 (10-20); Calcium 9.7 mg/dl (8.5-10.1); Creatinine Clr Calc Pharmacy 81.6 ml/min; Est GFR (Non-African American) 87.1 ml/min; Potassium 4.3 mmol/L (3.5-5.1)
[2022-12-24] MEDS: POLYETHYLENE (MIRALAX) 17 GM PACK PO SCH (11:55)
[2022-12-24] MEDS: DOCUSATE SODIUM 100 MG CAP PO SCH ×2 (11:55→21:27)
--- NOTE | 2022-12-24 12:25 | Gastrointestinal Consultation ---
Date of Consultation December 24, 2022 Assessment & Plan (1) Dysphagia: Chronic solids dysphagia, worsened w CVA. Of note, his progress notes mention n SBO but I am unable to find suggestion of that on CT results or CXR results. Will plan for EGD tomorrow. Discussed w patient and separately, per pt request, I called his who would like him to undergo EGD. Will hold tomorrow morning's Lovenox. Plan Will plan for EGD tomorrow. Discussed w patient and separately, per pt request, I called his who would like him to undergo EGD. Will hold tomorrow morning's Lovenox. Further recommendations to follow EGD. Supervising Physician Co-Signing Physician Notes I have seen and examined the patient and discussed the management with JANIS Huston. consult for dysphagia. Admitted with weakness. Recent stroke end of 11/01 - with dysphagia to solids primarily. PE as noted above. Suspect his dysphagia is likely secondary to his recent stroke. Will proceed to with EGD to rule out an obstructive etiology tomorrow, hold lovenox, npo after midnite. History of Present Illness Reason for Consultation: Dysphagia Requesting Physician: Cristina Ledesma NP Attending Physician: Fernando Phipps MD History of Present Illness Mr. Teresa Esparza is a 72 yr old male pt of Dr. Queenie bonilla a hx of rHTN, mild , DM-2, RLS and BPH. He experienced an MCA stroke in the end of October and was in rehab at [facility] and back home for weeks now. Since being home, he has had a poor appetite, presented to [facility] on 12/22 for weakness, poor appetite, multiple falls. GI is consulted for dysphagia. According to the pt, this occurs w dry foods and pills about once every day and this morning, he regurgitated yemeni toast soon after swallowing. He asked me to call his and she says that he has had this intermittently for years and it became more frequent since the stroke. He underwent bedside speech eval w/o aspiration and w recommendation for regular diet, thin liquids and aspiration precautions. On ASA 81mg/day at home, Daily Lovenox was started at the time of this admission. No prior EGDs. Allergies Allergy/AdvReac Type Severity Reaction Status Date / Time bee venom protein (honey bee) Allergy Anaphylaxis Verified 12/21/22 20:00 codeine Allergy Anaphylaxis Verified 12/21/22 20:00 Home Medications Medication Instructions Recorded Confirmed Type aspirin 81 mg tablet,delayed 81 mg PO QAM 12/21/22 12/21/22 History release atorvastatin 40 mg tablet 40 mg PO QAM 12/21/22 12/21/22 History celecoxib 200 mg capsule 200 mg PO BID 12/21/22 12/21/22 History empagliflozin 10 mg tablet 10 mg PO QAM 12/21/22 12/21/22 History lisinopril 10 mg tablet 5 mg PO QAM 12/21/22 12/21/22 History metformin 500 mg tablet 500 mg PO BIDWMEAL 12/21/22 12/21/22 History ropinirole 2 mg tablet 3 mg PO HS 12/21/22 12/21/22 History tamsulosin 0.4 mg capsule 0.4 mg PO QAM 12/21/22 12/21/22 History Patient History Medical History (Updated 12/24/22 @ 12:45 by JANIS Jolly) Diabetes Hypertension Social History (Updated 11/09/22 @ 20:19 by Romana Lisa MD) Smoking Status: Never smoker Hx Alcohol Use: No Hx Substance Use: No Preferred Language: Hungarian Communication Ability: Effective 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 No fevers. + 40 lbs weight loss since October Eyes: No eye redness, or pain, no recent vision changes Resp: No SOB, no cough Cardio: No palpitations/irregular beats, no chest pain GI: No abdominal pain, no nausea/vomiting : Denies pain on urination Skin: No jaundice, itching or new rashes Neuro: left leg weakness, "gives out," since the stroke Physical Exam Constitutional: WD/WN, vitals as above (oriented to person, place, time) + generalized weakness Eyes: PERRL, conjunctivae normal, anicteric sclerae ENMT: external ear and nose normal, oropharynx normal Neck: trachea midline, no thyromegaly Respiratory: normal respiratory effort, lungs clear to auscultation Cardiovascular: RRR, no murmur, no edema Gastrointestinal (Abdomen): normal bowel sounds, soft, nontender, no hepatosplenomegaly Musculoskeletal: generalized weakness, mild left leg weakness compared to right, normal/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 Skin: no rashes, warm and dry Neurologic: PERRL, EOMI, accommodation nl, no face palsy, no dysarthria Needs help to sit up in bed. Can roll side to side Psychiatric: A+Ox3, euthymic affect Lymphatic: no cervical or axillary lymphadenopathy Results & Data ([facility]) Vital Signs (Past 12 Hours) Vital Signs Temp Pulse Pulse Resp BP Pulse Ox O2 Del Method 12/24/22 07:43 36.5 C 62 18 126/78 94 Room Air 12/24/22 07:04 70 16 119/73 95 Room Air Laboratory Results WBC 6, Hb 15.2, hct 43, Plts 179, PT 11.0, INR 1.0, Na 137, K 4.3, Cl 106, CO2 21, BN 16, Cr 0.82, Glucose 103. Diagnostic Findings CTAP 12/21/22 w IV contrast 1. No bowel wall thickening or obstruction. 2. Normal appendix. 3. Colonic diverticulosis. No evidence for acute diverticulitis. 4. Prostatomegaly.
--- NOTE | 2022-12-24 13:24 | Hospitalist Progress Note ---
Date of Service December 24, 2022 Assessment & Plan (1) Vomiting: Plan: Nausea and Vomiting Dysphagia CT ABD/pelvis: 1. No bowel wall thickening or obstruction. 2. Normal appendix. 3. Colonic diverticulosis. No evidence for acute diverticulitis. 4. Prostatomegaly. SBO ruled out Nausea and vomiting resolved. Continues to have dysphagia with solids. Patient did well with speech therapy. GI consulted today for ongoing dysphagia, planning on EGD tomorrow Dizziness DD: Due to recent CVA Vs orthostasis Orthostatics positive on 12/22 however now asymptomatic Multiple falls Ambulatory dysfunction Due to left-sided weakness from CVA Fall precautions PT OT: Needs Rehab Recent right MCA occlusion S/P MCA mechanical thrombectomy Right internal carotid artery occlusion S/P angioplasty and stent Left hemiplegia secondary to above Dysarthria secondary to above Continue aspirin, statin Hypertension Blood pressure intermittently low Continue lisinopril with holding parameters BPH On tamsulosin DM II Hold p.o. meds, Lantus and NovoLog per protocol while hospitalized Blood sugars controlled HbA1c 7.19 October 2022 Restless leg syndrome on ropinirole DVT PROPHYLAXIS SQ Lovenox, holding tomorrow's dose due to EGD Admission and Anticipated Discharge Date Admission Date: December 23, 2022 Supervising Physician Co-Signing Physician Notes Patient is seen and examined at bedside. States having difficulty swallowing solid food. Denies any issues with liquids. Chronic left-sided weakness improving. No other complaints. Denies any chest pain, dyspnea, dizziness, nausea, abdominal pain. Physical Exam: Vitals signs as noted above General Appearance:Moderately built and nourished, no apparent distress Head: normocephalic, Atraumatic Eyes: normal inspection, EOMI Neck: supple, Trachea midline Respiratory/Chest: Normal breath sounds, CTA, No accessory muscle use Cardiovascular: S1, S2, + murmur Abdomen/GI:Soft, Non tender, Bowel sounds present Extremities/Musculoskeletal:normal inspection, no edema Neurologic/Psych:AAOX3, Mild L LE weakness 4/5 Skin: normal color, warm Dysphagia Nausea vomiting secondary to above Likely due to CVA No signs of obstruction on imaging Liquid diet for now N.p.o. after midnight for EGD tomorrow Appreciate GI input Recent CVA Residual left-sided weakness secondary to above Ambulatory dysfunction Plan to discharge to rehab facility as able I personally reviewed the record. Patient is interviewed and examined at [facility]. Patient's care is coordinated with Cristina Ledesma LIFE SKILLS SPECIALIST. Please refer to the documentation above for details of patient's presentation and for discussion of other issues. Subjective Follow-up for nausea, vomiting, dysphagia. Patient seen and examined. Patient notes difficulty swallowing with solids at breakfast this morning. Had 1 episode of regurgitation. No further abdominal pain or nausea. Denies chest pain and shortness of breath. Review of Systems Review of Systems: ROS per HPI, all other systems reviewed and negative Physical Exam Constitutional: WD/WN, vitals as above no acute distress Respiratory: normal respiratory effort, lungs clear to auscultation Cardiovascular: Rate/Rhythm: regular rate and regular rhythm Vessels: normal peripheral pulses Extremities: no edema Gastrointestinal (Abdomen): Percussion/Palpation: abdomen soft; abdomen nontender Skin: no rashes, warm and dry Neurologic: Residual left-sided weakness from prior CVA Psychiatric: A+Ox3, euthymic affect Results & Data Results & Data ([facility]) Vital Signs (Past 12 Hours) Vital Signs Temp Pulse Pulse Resp BP Pulse Ox O2 Del Method 12/24/22 07:43 36.5 C 62 18 126/78 94 Room Air 12/24/22 07:04 70 16 119/73 95 Room Air Laboratory Results Short CBC 12/24/22 Range/Units 08:31 WBC 6.74 (4.8-10.8) K/ul Hgb 15.2 (14.0-18.0) g/dl Hct 43.7 (42.0-52.0) % Plt Count 179 (130-400) K/uL BMP 12/24/22 08:31 Sodium 137 Potassium 4.3 Chloride 106 Carbon Dioxide 21 BUN 16 Creatinine 0.82 Glucose 103 H Calcium 9.7
--- NOTE | 2022-12-24 15:45 | Anesthesiology Consultation ---
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 Raeann Cary MD Height/Weight Height: 5 ft 10 in Weight: 86.6 kg Allergies Allergy/AdvReac Type Severity Reaction Status Date / Time bee venom protein (honey bee) Allergy Anaphylaxis Verified 12/21/22 20:00 codeine Allergy Anaphylaxis Verified 12/21/22 20:00 Medications Home Medications Medication Instructions Recorded Confirmed Last Taken aspirin 81 mg tablet,delayed 81 mg PO QAM 12/21/22 12/21/22 Unknown release atorvastatin 40 mg tablet 40 mg PO QAM 12/21/22 12/21/22 Unknown celecoxib 200 mg capsule 200 mg PO BID 12/21/22 12/21/22 Unknown empagliflozin 10 mg tablet 10 mg PO QAM 12/21/22 12/21/22 Unknown lisinopril 10 mg tablet 5 mg PO QAM 12/21/22 12/21/22 Unknown metformin 500 mg tablet 500 mg PO BIDWMEAL 12/21/22 12/21/22 Unknown ropinirole 2 mg tablet 3 mg PO HS 12/21/22 12/21/22 Unknown tamsulosin 0.4 mg capsule 0.4 mg PO QAM 12/21/22 12/21/22 Unknown Active Medications Generic Name Dose Route Start Last Admin Trade Name Freq PRN Reason Stop Dose Admin Aspirin 81 mg 12/22/22 09:00 12/24/22 08:33 Aspirin 81 Mg Ectab PO 01/21/23 08:59 81 mg QAM TANG Administration Atorvastatin Calcium 40 mg 12/22/22 09:00 12/24/22 08:33 Atorvastatin 40 Mg Tab PO 01/21/23 08:59 40 mg QAM TANG Administration Docusate Sodium 100 mg 12/24/22 11:15 12/24/22 11:55 Docusate Sodium 100 Mg Cap PO 01/23/23 11:14 Not Given BID TANG Enoxaparin Sodium 40 mg 12/22/22 09:00 12/24/22 08:33 Enoxaparin Inj 40 Mg/0.4 Ml Syr SQ 01/21/23 08:59 40 mg QAM TANG Administration Promethazine HCl 12.5 mg/ 50.5 mls @ 202 mls/hr 12/22/22 03:59 12/22/22 23:58 Sodium Chloride IV 01/21/23 03:58 Infused Q6H PRN Infusion Nausea And Vomiting Insulin Aspart 0 units 12/22/22 21:00 12/24/22 12:20 Insulin Aspart Per Unit SC 01/21/23 05:59 Not Given ACHS TANG Insulin Glargine 5 units 12/22/22 09:00 12/24/22 08:34 Lantus Per Unit Charge SQ 01/21/23 08:59 5 units DAILY TANG Administration Lisinopril 2.5 mg 12/22/22 09:00 12/24/22 08:33 Lisinopril 2.5 Mg Tab PO 01/21/23 08:59 2.5 mg QAM TANG Administration Polyethylene Glycol 17 gm 12/24/22 11:15 12/24/22 11:55 Polyethylene (Miralax) 17 Gm Pack PO 01/23/23 11:14 Not Given DAILY TANG Ropinirole HCl 3 mg 12/22/22 21:00 12/23/22 20:16 Ropinirole Hcl 1 Mg Tablet PO 01/21/23 20:59 3 mg HS TANG Administration Tamsulosin HCl 0.4 mg 12/22/22 09:00 12/24/22 08:33 Tamsulosin Hcl 0.4 Mg Cap PO 01/21/23 08:59 0.4 mg QAM TANG Administration Past Medical History Medical History (Updated 12/24/22 @ 15:47 by Malik Angulo MD) Diabetes Encounter for pre-operative examination Hypertension Social History Smoking Status: Never smoker Hx Alcohol Use: No Hx Substance Use: No substance use type: does not use Physical Exam Vital Signs Last Vital Signs Temp 36.4 C L 12/24/22 15:02 Pulse 80 12/24/22 15:02 Resp 16 12/24/22 15:02 BP 107/70 12/24/22 15:02 Pulse Ox 94 12/24/22 15:02 O2 Del Method 12/24/22 15:02 Testing Laboratory Results 12/24/22 08:31 12/24/22 08:31 Urine Color Yellow 12/22/22 06:00 Urine Appearance Clear (Clear) 12/22/22 06:00 Urine pH 5.0 (4.5-7.5) 12/22/22 06:00 Ur Specific [place] > 1.045 (1.000-1.030) H 12/22/22 06:00 Urine Protein Negative (Negative) 12/22/22 06:00 Urine Glucose (UA) 1+ (Negative) H 12/22/22 06:00 Urine Ketones 2+ (Negative) H 12/22/22 06:00 Urine Nitrite Negative (Negative) 12/22/22 06:00 Ur Leukocyte Esterase Negative (Negative) 12/22/22 06:00 12/24/22 12/24/22 12:14 08:02 POC Glucose 89 109 H Electrocardiogram Date: 12/21/22 Test Reason : Blood Pressure : / mmHG Vent. Rate : 071 BPM Atrial Rate : 071 BPM P-R Int : 192 ms QRS Dur : 126 ms QT Int : 418 ms P-R-T Axes : 066 -50 105 degrees QTc Int : 454 ms Poor data quality, interpretation may be adversely affected Normal sinus rhythm Left axis deviation Left ventricular hypertrophy with QRS widening and repolarization abnormality Possible Anterolateral infarct , age undetermined Abnormal ECG When compared with ECG of 08-NOV-2022 08:19, Borderline criteria for Anterolateral infarct are now Present Confirmed by Tonio Monroy ([id number]) on 12/22/2022 10:40:11 PM Chest X-Ray Date: 12/21/22 XR chest 1V portable CLINICAL HISTORY: illness COMPARISON STUDY: No previous studies for comparison. FINDINGS: Patient is rotated. Right shoulder arthroplasty is incidentally noted. No pneumothorax or pleural effusion is present. There is no consolidation or evidence for pulmonary edema. Minimal left basilar opacity favors atelectasis. IMPRESSION: No acute cardiopulmonary findings.
[2022-12-24] MEDS: rOPINIRole HCL 1 MG TABLET PO SCH (21:27)
--- NOTE | 2022-12-25 08:38 | History & Physical Report ---
Date of Service December 25, 2022 Assessment & Plan Admission and Anticipated Discharge Date Admission Date: December 23, 2022 History of Present Illness Chief Complaint: Dysphagia Primary Care Provider: Garth Jerome DO 72 yo male with a prior stroke, now with dysphagia to solids. No weight loss. No other acute complaints voiced to me. Allergies Allergy/AdvReac Type Severity Reaction Status Date / Time bee venom protein (honey bee) Allergy Anaphylaxis Verified 12/21/22 20:00 codeine Allergy Anaphylaxis Verified 12/21/22 20:00 Home Medications Medication Instructions Recorded Confirmed Type aspirin 81 mg tablet,delayed 81 mg PO QAM 12/21/22 12/21/22 History release atorvastatin 40 mg tablet 40 mg PO QAM 12/21/22 12/21/22 History celecoxib 200 mg capsule 200 mg PO BID 12/21/22 12/21/22 History empagliflozin 10 mg tablet 10 mg PO QAM 12/21/22 12/21/22 History lisinopril 10 mg tablet 5 mg PO QAM 12/21/22 12/21/22 History metformin 500 mg tablet 500 mg PO BIDWMEAL 12/21/22 12/21/22 History ropinirole 2 mg tablet 3 mg PO HS 12/21/22 12/21/22 History tamsulosin 0.4 mg capsule 0.4 mg PO QAM 12/21/22 12/21/22 History Past Med/Surg History Medical History (Updated 12/24/22 @ 15:47 by Malik Angulo MD) Diabetes Encounter for pre-operative examination Hypertension Social History (Updated 11/09/22 @ 20:19 by Romana Lisa MD) Smoking Status: Never smoker Hx Alcohol Use: No Hx Substance Use: No Preferred Language: Stateless Communication Ability: Effective 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 Beliefs That Will Affect Care: None marital status: Current Living Situation: Spouse Other Information That Helps Us Care for You: No Feels Safe at Home: Yes Safety Concerns: Feels Safe At This Time Assistive Devices: Walker Review of Systems All systems reviewed & are unremarkable except as noted in HPI & below Physical Exam Physical Exam: Elderly male in nad, oriented to person/place/time Eyes: PERRLA Respiratory: Normal respirations Gastrointestinal (Abdomen): soft nt nd Results & Data ([facility]) Vital Signs (Past 12 Hours) Vital Signs Temp Pulse Resp BP Pulse Ox O2 Del Method 12/25/22 08:28 36.7 C 62 16 128/70 95 Room Air 12/25/22 08:00 35.7 C L 63 16 105/69 93 Room Air 12/24/22 20:38 36.6 C 61 18 109/65 95 Room Air Code Status & VTE Plan VTE Prophylaxis Plan VTE Prophylaxis will be ordered: Yes Supervising Physician Co-Signing Physician Notes EGD for evaluation of dysphagia.
[2022-12-25 08:50] LABS: Hematocrit (blood only) 40.3 % (42.0-52.0); Hemoglobin 14.3 g/dl (14.0-18.0); Mean Corpuscular Hemoglobin 31.7 pg (25.0-34.0); Mean Corpuscular Hgb Conc 35.5 g/dL (32.0-36.0); Mean Corpuscular Volume 89.4 fL (80.0-100.0); Platelet Count 162 K/uL (130-400); RDW Standard Deviation 45.4 fL (36.4-46.3); Red Blood Count 4.51 M/uL (4.70-6.10); White Blood Count 6.97 K/ul (4.8-10.8)
--- NOTE | 2022-12-25 08:53 | History & Physical Report ---
Date of Service December 25, 2022 Assessment & Plan Admission and Anticipated Discharge Date Admission Date: December 23, 2022 History of Present Illness Chief Complaint: See bridge note from today. Entered in error. Primary Care Provider: Garth Jerome DO Allergies Allergy/AdvReac Type Severity Reaction Status Date / Time bee venom protein (honey bee) Allergy Anaphylaxis Verified 12/21/22 20:00 codeine Allergy Anaphylaxis Verified 12/21/22 20:00 Home Medications Medication Instructions Recorded Confirmed Type aspirin 81 mg tablet,delayed 81 mg PO QAM 12/21/22 12/21/22 History release atorvastatin 40 mg tablet 40 mg PO QAM 12/21/22 12/21/22 History celecoxib 200 mg capsule 200 mg PO BID 12/21/22 12/21/22 History empagliflozin 10 mg tablet 10 mg PO QAM 12/21/22 12/21/22 History lisinopril 10 mg tablet 5 mg PO QAM 12/21/22 12/21/22 History metformin 500 mg tablet 500 mg PO BIDWMEAL 12/21/22 12/21/22 History ropinirole 2 mg tablet 3 mg PO HS 12/21/22 12/21/22 History tamsulosin 0.4 mg capsule 0.4 mg PO QAM 12/21/22 12/21/22 History Past Med/Surg History Medical History (Updated 12/24/22 @ 15:47 by Malik Angulo MD) Diabetes Encounter for pre-operative examination Hypertension Social History (Updated 11/09/22 @ 20:19 by Romana Lisa MD) Smoking Status: Never smoker Hx Alcohol Use: No Hx Substance Use: No Preferred Language: Arabic Communication Ability: Effective 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
--- NOTE | 2022-12-25 08:55 | Communication Note ---
Date of Service: December 25, 2022 Pt is here for EGD. Pt had ischemic stroke end of October 2022. Since this is an elective procedure we have decided to postpone procedue for at least three months and possibly up to 6 months post stroke. Discussed with patient and Dr Cary.
--- NOTE | 2022-12-25 08:55 | Communication Note ---
Date of Service: December 25, 2022 Plan was for egd today. Cancelled by anesthesia as they report the patient has to be 6 months out from a stroke prior to sedation. Edna will contact his to discuss this. Consider esophagram in the interim to determine obstructive etiology.
[2022-12-25 09:04] LABS: BUN Creatinine Ratio 16.1 (10-20); Calcium 9.4 mg/dl (8.5-10.1); Creatinine Clr Calc Pharmacy 76.9 ml/min; Est GFR (African American) 98.5 ml/min; Potassium 3.8 mmol/L (3.5-5.1)
[2022-12-25] MEDS: INSULIN ASPART PER UNIT SC SCH ×4 (09:10→20:59)
[2022-12-25] MEDS: ATORVASTATIN 40 MG TAB PO SCH (11:04)
[2022-12-25] MEDS: DOCUSATE SODIUM 100 MG CAP PO SCH ×2 (11:04→19:42)
[2022-12-25] MEDS: ASPIRIN 81 MG ECTAB PO SCH (11:04)
[2022-12-25] MEDS: POLYETHYLENE (MIRALAX) 17 GM PACK PO SCH (11:05)
[2022-12-25] MEDS: TAMSULOSIN HCL 0.4 MG CAP PO SCH (11:05)
[2022-12-25] MEDS: lisinopril 2.5 MG TAB PO SCH (11:05)
[2022-12-25] MEDS: LANTUS PER UNIT CHARGE SQ SCH (13:33)
--- NOTE | 2022-12-25 13:43 | Fluoroscopy Report ---
DOUBLE CONTRAST BARIUM ESOPHAGRAM CLINICAL HISTORY: Dysphagia. COMPARISON STUDY: No prior. TECHNIQUE: A standard air contrast barium esophagram is performed. Multiple spot images of the esopha melecio are acquired both upright and prone. FINDINGS: The patient swallowed barium without difficulty. The patient was unable to swallow the robin um pill. There is [id number] esophageal dysmotility. The mucosal pattern is normal. There is no evidence of intrinsic or extrinsic mass lesion. No aspiration was seen. The gastroesophageal juncti on distended normally. No gastroesophageal reflux could be elicited by having the patient perform the Valsalva maneuver. Fluoroscopy time: 1.5 minutes. Exposure: 56.53 mGy Fluoroscopic images: 13 spot images and 2 cine loops IMPRESSION: 1. [id number] esophageal dysmotility. 2. The patient was unable to swallow the barium pill. ACT 112: Negative or not required by law. Electronically signed by: Daljit Carlson M.D. 12/25/2022 1:41 PM
--- NOTE | 2022-12-25 14:26 | Hospitalist Progress Note ---
Date of Service December 25, 2022 Assessment & Plan (1) Vomiting: Plan: Nausea and Vomiting Dysphagia CT ABD/pelvis: 1. No bowel wall thickening or obstruction. 2. Normal appendix. 3. Colonic diverticulosis. No evidence for acute diverticulitis. 4. Prostatomegaly. SBO ruled out Nausea and vomiting resolved however continues to have dysphagia with solids. Patient did well with speech therapy. GI consulted for ongoing dysphagia, EGD was planned for today however canceled by anesthesia due to recent CVA Barium swallow: 1. Onxb-jx-qvknkyci esophageal dysmotility. 2. The patient was unable to swallow the barium pill. Will trial slippery diet. Will ask speech to reevaluate to provide education. 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 meds, Lantus and NovoLog per protocol while hospitalized Blood sugars controlled HbA1c 7.19 October 2022 Restless leg syndrome on ropinirole DVT PROPHYLAXIS SQ Lovenox Admission and Anticipated Discharge Date Admission Date: December 23, 2022 Supervising Physician Co-Signing Physician Notes Patient is seen and examined at bedside. States having transient nausea this morning. Also continues to have dysphagia. Could not get EGD secondary to recent CVA. Denies any chest pain, dyspnea, dizziness, nausea, abdominal pain. Physical Exam: Vitals signs as noted above General Appearance:Moderately built and nourished, no apparent distress Head: normocephalic, Atraumatic Eyes: normal inspection, EOMI Neck: supple, Trachea midline Respiratory/Chest: Normal breath sounds, CTA, No accessory muscle use Cardiovascular: S1, S2, + murmur Abdomen/GI:Soft, Non tender, Bowel sounds present Extremities/Musculoskeletal:normal inspection, no edema Neurologic/Psych:AAOX3, Mild L LE weakness 4/5 Skin: normal color, warm Dysphagia Nausea vomiting secondary to above Likely due to CVA Could not obtain EGD S/P Barium Swallow:Feqa-ie-mwrgjdjx esophageal dysmotility. The patient was unable to swallow the barium pill. Appreciate GI input Speech therapy evaluated as well Trial of slippery diet May need NG tube-tube feeds if fails liquid diet I personally reviewed the record. Patient is interviewed and examined at bedside. Patient's care is coordinated with Cristina Ledesma [employer]. Please refer to the documentation above for details of patient's presentation and for discussion of other issues. Subjective Follow-up for nausea, vomiting, dysphagia. Patient seen and examined. EGD canceled this a.m. by anesthesia due to recent CVA. Patient reports some mild nausea this morning. Denies abdominal pain. No vomiting however patient has been n.p.o. Denies chest pain and shortness of breath. Review of Systems Review of Systems: ROS per HPI, all other systems reviewed and negative Physical Exam Constitutional: WD/WN, vitals as above Respiratory: normal respiratory effort, lungs clear to auscultation Cardiovascular: Rate/Rhythm: regular rate and regular rhythm Vessels: normal peripheral pulses Extremities: no edema Gastrointestinal (Abdomen): Percussion/Palpation: abdomen soft; abdomen nontender Skin: no rashes, warm and dry Neurologic: Residual left-sided weakness from prior CVA Psychiatric: A+Ox3, euthymic affect Results & Data Results & Data ([facility]) Vital Signs (Past 12 Hours) Vital Signs Temp Pulse Resp BP Pulse Ox O2 Del Method 12/25/22 11:30 36.2 C L 58 L 16 114/66 94 Room Air 12/25/22 08:28 36.7 C 62 16 128/70 95 Room Air 12/25/22 08:00 35.7 C L 63 16 105/69 93 Room Air Laboratory Results Short CBC 12/25/22 Range/Units 08:03 WBC 6.97 (4.8-10.8) K/ul Hgb 14.3 (14.0-18.0) g/dl Hct 40.3 L (42.0-52.0) % Plt Count 162 (130-400) K/uL BMP 12/25/22 08:03 Sodium 139 Potassium 3.8 Chloride 107 Carbon Dioxide 24 BUN 14 Creatinine 0.87 Glucose 88 Calcium 9.4 Diagnostic Findings Barium Swallow X-Ray 12/25/22 10:17 DOUBLE CONTRAST BARIUM ESOPHAGRAM CLINICAL HISTORY: Dysphagia. COMPARISON STUDY: No prior. TECHNIQUE: A standard air contrast barium esophagram is performed. Multiple spot images of the esophagus are acquired both upright and prone. FINDINGS: The patient swallowed barium without difficulty. The patient was unable to swallow the barium pill. There is iphh-as-nthlvqhl esophageal dysmotility. The mucosal pattern is normal. There is no evidence of intrinsic or extrinsic mass lesion. No aspiration was seen. The gastroesophageal junction distended normally. No gastroesophageal reflux could be elicited by having the patient perform the Valsalva maneuver. Fluoroscopy time: 1.5 minutes. Exposure: 56.53 mGy Fluoroscopic images: 13 spot images and 2 cine loops IMPRESSION: 1. Ozyi-rh-bdtwmdrh esophageal dysmotility. 2. The patient was unable to swallow the barium pill. ACT 112: Negative or not required by law. Electronically signed by: Daljit Carlson M.D. 12/25/2022 1:41 PM
[2022-12-25] MEDS: rOPINIRole HCL 1 MG TABLET PO SCH (19:41)
[2022-12-25] MEDS: ACETAMINOPHEN 325 MG TAB PO PRN (22:52)
[2022-12-26 07:27] LABS: Hematocrit (blood only) 43.5 % (42.0-52.0); Hemoglobin 15.4 g/dl (14.0-18.0); Mean Corpuscular Hgb Conc 35.4 g/dL (32.0-36.0); Mean Corpuscular Volume 90.4 fL (80.0-100.0); Mean Platelet Volume 9.6 fL (9.4-12.4); Platelet Count 178 K/uL (130-400); RDW Standard Deviation 46.4 fL (36.4-46.3); Red Blood Count 4.81 M/uL (4.70-6.10); White Blood Count 7.15 K/ul (4.8-10.8)
[2022-12-26 07:49] LABS: BUN Creatinine Ratio 17.9 (10-20); Calcium 9.9 mg/dl (8.5-10.1); Creatinine Clr Calc Pharmacy 79.7 ml/min; Est GFR (Non-African American) 86.3 ml/min; Potassium 3.8 mmol/L (3.5-5.1)
[2022-12-26] MEDS: INSULIN ASPART PER UNIT SC SCH ×4 (08:31→20:36)
[2022-12-26] MEDS: lisinopril 2.5 MG TAB PO SCH (08:35)
[2022-12-26] MEDS: TAMSULOSIN HCL 0.4 MG CAP PO SCH (08:35)
[2022-12-26] MEDS: POLYETHYLENE (MIRALAX) 17 GM PACK PO SCH (08:36)
[2022-12-26] MEDS: ASPIRIN 81 MG ECTAB PO SCH (08:36)
[2022-12-26] MEDS: LANTUS PER UNIT CHARGE SQ SCH (08:36)
[2022-12-26] MEDS: DOCUSATE SODIUM 100 MG CAP PO SCH ×2 (08:36→20:05)
[2022-12-26] MEDS: ATORVASTATIN 40 MG TAB PO SCH (08:36)
[2022-12-26] MEDS: ENOXAPARIN INJ 40 MG/0.4 ML SYR SQ SCH (10:08)
--- NOTE | 2022-12-26 12:06 | XRay Report ---
KUB CLINICAL HISTORY: Constipation. COMPARISON STUDY: CT of the abdomen and pelvis December 21, 2022. FINDINGS: Contrast within the ascending colon from recent barium swallow is incidentally noted. There has been interval development of mild small bowel dilatation since prior CT. Jejunal loops measure u p to 4.5 cm in caliber. There is gas throughout the colon and rectum. Amount of stool is within leonard l limits. IMPRESSION: Interval development of mild small bowel dilatation. This could reflect an ileus. A part ial small bowel obstruction is considered less likely but could appear similar. ACT 112: Negative or not required by law. Electronically signed by: Kamar Elizalde M.D. 12/26/2022 12:05 PM
--- NOTE | 2022-12-26 14:07 | Hospitalist Progress Note ---
Date of Service December 26, 2022 Assessment & Plan (1) Vomiting: Plan: Nausea and Vomiting Dysphagia CT ABD/pelvis: 1. No bowel wall thickening or obstruction. 2. Normal appendix. 3. Colonic diverticulosis. No evidence for acute diverticulitis. 4. Prostatomegaly. SBO ruled out Nausea and vomiting resolved however continues to have dysphagia/regurgitating with solids. Patient did well with speech therapy. GI consulted for ongoing dysphagia, EGD was planned for 12/25 however canceled by anesthesia due to recent CVA Barium swallow: 1. Jwsh-iy-sbhzymno esophageal dysmotility. 2. The patient was unable to swallow the barium pill. Slippery diet trialed and patient not tolerating well. Speech re-evaled today -- there does not seem to be a pharyngeal issue. Will re-consult anesthesia to evaluate for EGD. May need to pursue NG tube for feedings. 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 meds, Lantus and NovoLog per protocol while hospitalized Blood sugars controlled HbA1c 7.19 October 2022 Restless leg syndrome on ropinirole [facility] Admission and Anticipated Discharge Date Admission Date: December 23, 2022 Supervising Physician Co-Signing Physician Notes Patient is seen and examined at bedside. Patient continues to have dysphagia. Discussed with GI today. KUB today suggestive of ileus. Denies any chest pain, dyspnea, dizziness, nausea, abdominal pain. Physical Exam: Vitals signs as noted above General Appearance:Moderately built and nourished, no apparent distress Head: normocephalic, Atraumatic Eyes: normal inspection, EOMI Neck: supple, Trachea midline Respiratory/Chest: Normal breath sounds, CTA, No accessory muscle use Cardiovascular: S1, S2, + murmur Abdomen/GI:Soft, Non tender, Bowel sounds present Extremities/Musculoskeletal:normal inspection, no edema Neurologic/Psych:AAOX3, Mild L LE weakness 4/5 Skin: normal color, warm Dysphagia Nausea vomiting secondary to above Likely due to CVA Ileus S/P Barium Swallow:Vhdv-hh-urvtygjg esophageal dysmotility. The patient was unable to swallow the barium pill. Appreciate GI input Speech therapy evaluated as well Clear liquid diet for today Repeat KUB tomorrow to monitor ileus Plan for EGD tomorrow I personally reviewed the record. Patient is interviewed and examined at bedside. Patient's care is coordinated with Cristina Ledesma [employer]. Please refer to the documentation above for details of patient's presentation and for discussion of other issues. Subjective Follow-up for nausea, vomiting, dysphagia. Patient seen and examined. Ongoing issues with swallowing. Seems to be only able to tolerate cold liquids. Eating makes him nauseous. Denies chest pain and shortness of breath. No cough. Review of Systems Review of Systems: ROS per HPI, all other systems reviewed and negative Physical Exam Constitutional: WD/WN, vitals as above sitting up in the chair Respiratory: normal respiratory effort, lungs clear to auscultation Cardiovascular: Rate/Rhythm: regular rate and regular rhythm Vessels: normal peripheral pulses Extremities: no edema Gastrointestinal (Abdomen): Percussion/Palpation: abdomen soft; abdomen nontender Skin: no rashes, warm and dry Neurologic: residual left sided weakness from prior CVA Psychiatric: A+Ox3, euthymic affect Results & Data Results & Data ([facility]) Vital Signs (Past 12 Hours) Vital Signs Temp Pulse Resp BP Pulse Ox O2 Del Method 12/26/22 07:23 Room Air 12/26/22 07:35 36.7 C 72 18 109/73 96 Room Air Laboratory Results Short CBC 12/26/22 Range/Units 06:59 WBC 7.15 (4.8-10.8) K/ul Hgb 15.4 (14.0-18.0) g/dl Hct 43.5 (42.0-52.0) % Plt Count 178 (130-400) K/uL [facility] 12/26/22 06:59 Sodium 138 Potassium 3.8 Chloride 105 Carbon Dioxide 22 BUN 15 Creatinine 0.84 Glucose 87 Calcium 9.9
[2022-12-26] MEDS ORDERED: bisacodyL 10 MG SUPP PR ONE (17:06)
[2022-12-26] MEDS: rOPINIRole HCL 1 MG TABLET PO SCH (20:05)
[2022-12-26] MEDS: PROMETHAZINE HCL 12.5 MG in SODIUM CHLORIDE 0.9% 50 ML IV PRN (23:43)
[2022-12-27] MEDS: INSULIN ASPART PER UNIT SC SCH ×4 (08:16→20:45)
[2022-12-27 08:34] LABS: Hemoglobin 14.5 g/dl (14.0-18.0); Mean Corpuscular Hemoglobin 31.7 pg (25.0-34.0); Mean Corpuscular Hgb Conc 35.4 g/dL (32.0-36.0); Mean Corpuscular Volume 89.5 fL (80.0-100.0); Mean Platelet Volume 9.8 fL (9.4-12.4); Platelet Count 170 K/uL (130-400); RDW Coefficient of Variation 14.2 % (11.5-14.5); RDW Standard Deviation 46.5 fL (36.4-46.3); Red Blood Count 4.58 M/uL (4.70-6.10); White Blood Count 8.05 K/ul (4.8-10.8)
[2022-12-27 08:58] LABS: BUN Creatinine Ratio 18.1 (10-20); Calcium 9.7 mg/dl (8.5-10.1); Creatinine Clr Calc Pharmacy 71.2 ml/min; Est GFR (African American) 92.2 ml/min; Est GFR (Non-African American) 79.6 ml/min
--- NOTE | 2022-12-27 09:19 | XRay Report ---
KUB CLINICAL HISTORY: Ileus. COMPARISON STUDY: CT of the abdomen and pelvis December 21, 2022 and KUB December 26, 2022. FINDINGS: Oral contrast within the colon from recent barium swallow is incidentally noted. Small suri l dilatation has improved since prior KUB. Small bowel loops now measure up to 3.4 cm in caliber. The re is no evidence for free air on this supine exam. IMPRESSION: Interval improvement in small bowel dilatation. The findings favor an improving ileus. N o convincing evidence for a bowel obstruction. ACT 112: Negative or not required by law. Electronically signed by: Kamar Elizalde M.D. 12/27/2022 9:18 AM
[2022-12-27] MEDS: LANTUS PER UNIT CHARGE SQ SCH (09:20)
[2022-12-27] MEDS: ENOXAPARIN INJ 40 MG/0.4 ML SYR SQ SCH (09:21)
[2022-12-27] MEDS: DOCUSATE SODIUM 100 MG CAP PO SCH ×2 (10:50→20:50)
[2022-12-27] MEDS: ASPIRIN 81 MG ECTAB PO SCH (10:50)
[2022-12-27] MEDS: TAMSULOSIN HCL 0.4 MG CAP PO SCH (10:50)
[2022-12-27] MEDS: lisinopril 2.5 MG TAB PO SCH (10:50)
[2022-12-27] MEDS: ATORVASTATIN 40 MG TAB PO SCH (10:50)
--- NOTE | 2022-12-27 11:20 | History & Physical Bridge Note ---
Date of Service December 27, 2022 History & Physical Bridge Note I have examined the patient, reviewed the History & Physical and in the interval since the performance of the History & Physical I have noted the following changes of clinical significance: no changes noted
[2022-12-27] MEDS ORDERED: PROPOFOL IV EMULSION 10 MG/ML 20 ML VIAL IV ONE (11:57)
[2022-12-27] MEDS ORDERED: LIDOCAINE 2% MPF LOCAL 5 ML VIAL INFIL ONE (11:57)
--- NOTE | 2022-12-27 12:05 | GI REPORT ---
Patient Name: Teresa Esparza Procedure Date: 12/27/2022 11:23 AM Date of : 1950 Admit Type: Inpatient Age: 72 Gender: Male Attending MD: Kavitha Cary M.d., Procedure: Upper GI endoscopy Providers: Kavitha Cary M.d. Referring MD: Fernando Velasquez d.o., Md Indications: Dysphagia Medicines: See anesthesia record Complications: No immediate complications. Estimated Blood Loss: Estimated blood loss: none. Procedure: Pre-Anesthesia Assessment: - Patient identification and proposed procedure were verified prior to the procedure by the physician, the nurse and the anesthesiologist. The procedure was verified in the pre-procedure area. - Prior to the procedure, a History and Physical was performed, and patient medications, allergies and sensitivities were reviewed. The patient's tolerance of previous anesthesia was reviewed. - The risks and benefits of the procedure and the sedation options and risks were discussed with the patient. All questions were answered and informed consent was obtained. After obtaining informed consent, the endoscope was passed under direct vision. Throughout the procedure, the patient's blood pressure, pulse, and oxygen saturations were monitored continuously. The Endoscope was introduced through the mouth and advanced to the second part of duodenum. The upper GI endoscopy was accomplished without difficulty. The patient tolerated the procedure well. Findings: The examined esophagus appeared normal without overt narrowing or esophagitis or even an indentation to suggest an osteophyte effect on the esophagus. A guidewire was placed and the scope was withdrawn. An empiric dilation was performed with a Savary dilator with mild resistance at 45 Fr. The dilation site was examined following endoscope reinsertion and showed mild mucosal disruption. The Z-line appeared regular and was found at 35 cm from the incisors. The examined stomach appeared normal before and after dilation. Localized mildly erythematous mucosa without bleeding was found in the gastric antrum. Biopsies were taken with a cold forceps for Helicobacter pylori testing. The pathology specimen was placed into Bottle B. The duodenal bulb and second portion of the duodenum appeared normal before and after dilation. Impression: - Normal esophagus. Empirically dilated. - Z-line regular, 35 cm from the incisors. - Normal stomach. - Erythematous mucosa in the antrum. Biopsied. - Normal duodenal bulb and second portion of the duodenum. Recommendation: - Consider daily PPI. - No esophageal obstruction to explain patient's symptoms. - Interestingly he did seem to have prominent tissue noted near his vocal cords - ? prominent uvula versus tonsil that was briefly seen when passing the endoscope pass the vocal cords. Kavitha Cary M.D. Kavitha Cary M.d. 12/27/2022 12:05:29 PM This report has been signed electronically. Note Initiated On: 12/27/2022 11:23 AM Number of Addenda: 0 I attest to the content of the Intraoperative Record and orders documented therein, exceptions below {[id number]}
--- NOTE | 2022-12-27 12:26 | Anesthesiology Progress Note ---
Date of Service December 27, 2022 Anesthesia Post Procedure Vital Signs Vital Signs: Temp Pulse Pulse Resp BP Pulse Ox O2 Del Method 12/27/22 12:14 56 L 18 118/69 95 Room Air 12/27/22 11:59 70 16 98/65 L 95 Room Air 12/27/22 11:15 36.4 C L 61 18 132/66 97 Room Air 12/27/22 08:16 Room Air 12/27/22 07:23 36.7 C 64 18 115/68 95 Room Air 12/26/22 19:56 36.6 C 90 18 110/61 97 Room Air 12/26/22 15:32 36.3 C L 77 18 108/70 95 Room Air Transfer of Care Handoff Completed per policy Notes Mental Status: alert / awake / arousable and participated in evaluation Patient Amnestic to Procedure: Yes Nausea / Vomiting: adequately controlled Pain: adequately controlled Airway Patency, RR, SpO2: stable & adequate BP & HR: stable & adequate Hydration State: stable & adequate Anesthetic Complications: no major complications apparent
--- NOTE | 2022-12-27 12:45 | Gastroenterology Progress Note ---
Date of Service December 27, 2022 Assessment & Plan Admission and Anticipated Discharge Date Admission Date: December 23, 2022 Results & Data ([facility]) Vital Signs (Past 12 Hours) Vital Signs Temp Pulse Resp BP Pulse Ox O2 Del Method 12/27/22 12:29 58 L 20 117/71 97 Room Air 12/27/22 12:14 56 L 18 118/69 95 Room Air 12/27/22 11:59 70 16 98/65 L 95 Room Air 12/27/22 11:15 36.4 C L 61 18 132/66 97 Room Air 12/27/22 08:16 Room Air 12/27/22 07:23 36.7 C 64 18 115/68 95 Room Air
--- NOTE | 2022-12-27 12:49 | Communication Note ---
Date of Service: December 27, 2022 CVA October, recently/significantly worsened dysphagia which was present at times prior to stroke. EGD today significant only for mild antral gastritis - biopsied. Esophagus normal, empirically dilated. Consider neck CT, video swallow or ENT input as egd showed ? prominent tissue near the vocal cords. Diet per speech therapy.
[2022-12-27] MEDS: POLYETHYLENE (MIRALAX) 17 GM PACK PO SCH (16:31)
--- NOTE | 2022-12-27 17:04 | Hospitalist Progress Note ---
Date of Service December 27, 2022 Assessment & Plan (1) Vomiting: Plan: Dysphagia Ileus Nausea and Vomiting due to above Mild antral gastritis--biopsied --CT ABD/pelvis:No bowel wall thickening or obstruction. Normal appendix. Colonic diverticulosis. No evidence for acute diverticulitis. Prostatomegaly. --Barium Swallow:Gaja-se-wpqgysim esophageal dysmotility. The patient was unable to swallow the barium pill. --EGD:- Normal esophagus. Empirically dilated. Z-line regular, 35 cm from the incisors. Normal stomach. Erythematous mucosa in the antrum. Biopsied. Normal duodenal bulb and second portion of the duodenum. 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 meds, Lantus and NovoLog per protocol while hospitalized Blood sugars controlled HbA1c 7.19 October 2022 Restless leg syndrome on ropinirole DVT Px SQ Lovenox Admission and Anticipated Discharge Date Admission Date: December 23, 2022 Subjective Patient is seen and examined this morning Offers no new complaints Has dysphagia Plan for EGD today Had bowel movement overnight Denies any chest pain, nausea, vomiting, abdominal pain No other complaints Review of Systems Review of Systems: All systems reviewed & are unremarkable except as noted in Subjective Physical Exam Physical Exam: Physical Exam: Vitals signs as noted above General Appearance:Moderately built and nourished, no apparent distress Head: normocephalic, Atraumatic Eyes: normal inspection, EOMI Neck: supple, Trachea midline Respiratory/Chest: Normal breath sounds, CTA, No accessory muscle use Cardiovascular: S1, S2, + murmur Abdomen/GI:Soft, Non tender, Bowel sounds present Extremities/Musculoskeletal:normal inspection, no edema Neurologic/Psych:AAOX3, Mild L LE weakness 4/5 Skin: normal color, warm Results & Data Results & Data ([facility]) Vital Signs (Past 12 Hours) Vital Signs Temp Pulse Resp BP Pulse Ox O2 Del Method 12/27/22 15:33 36.5 C 63 17 109/62 95 Room Air 12/27/22 12:29 58 L 20 117/71 97 Room Air 12/27/22 12:14 56 L 18 118/69 95 Room Air 12/27/22 11:59 70 16 98/65 L 95 Room Air 12/27/22 11:15 36.4 C L 61 18 132/66 97 Room Air 12/27/22 08:16 Room Air 12/27/22 07:23 36.7 C 64 18 115/68 95 Room Air Laboratory Results Short CBC 12/27/22 Range/Units 08:01 WBC 8.05 (4.8-10.8) K/ul Hgb 14.5 (14.0-18.0) g/dl Hct 41.0 L (42.0-52.0) % Plt Count 170 (130-400) K/uL BMP 12/27/22 08:01 Sodium 138 Potassium 4.0 Chloride 105 Carbon Dioxide 25 BUN 17 Creatinine 0.94 Glucose 85 Calcium 9.7
[2022-12-27] MEDS: PANTOprazole 40 MG TAB PO SCH (17:54)
[2022-12-27] MEDS: rOPINIRole HCL 1 MG TABLET PO SCH (20:51)
[2022-12-28] MEDS: PANTOprazole 40 MG TAB PO SCH (08:34)
[2022-12-28] MEDS: ATORVASTATIN 40 MG TAB PO SCH (08:34)
[2022-12-28] MEDS: lisinopril 2.5 MG TAB PO SCH (08:34)
[2022-12-28] MEDS: TAMSULOSIN HCL 0.4 MG CAP PO SCH (08:34)
[2022-12-28] MEDS: ASPIRIN 81 MG ECTAB PO SCH (08:34)
[2022-12-28] MEDS: INSULIN ASPART PER UNIT SC SCH ×4 (08:35→20:58)
[2022-12-28] MEDS: ENOXAPARIN INJ 40 MG/0.4 ML SYR SQ SCH (08:37)
[2022-12-28 08:38] LABS: BUN Creatinine Ratio 20.5 (10-20); Calcium 9.9 mg/dl (8.5-10.1); Est GFR (African American) 98.1 ml/min; Est GFR (Non-African American) 84.6 ml/min; Potassium 3.9 mmol/L (3.5-5.1)
[2022-12-28] MEDS: LANTUS PER UNIT CHARGE SQ SCH (08:40)
[2022-12-28] MEDS: DOCUSATE SODIUM 100 MG CAP PO SCH ×2 (08:44→19:34)
[2022-12-28] MEDS: POLYETHYLENE (MIRALAX) 17 GM PACK PO SCH (08:44)
--- NOTE | 2022-12-28 15:34 | Hospitalist Progress Note ---
Date of Service December 28, 2022 Assessment & Plan (1) Vomiting: Plan: Dysphagia Ileus --> resolved Nausea and Vomiting due to above Mild antral gastritis--biopsied --CT ABD/pelvis:No bowel wall thickening or obstruction. Normal appendix. Colonic diverticulosis. No evidence for acute diverticulitis. Prostatomegaly. --Barium Swallow:[id number] esophageal dysmotility. The patient was unable to swallow the barium pill. --EGD:- Normal esophagus. Empirically dilated. Z-line regular, 35 cm from the incisors. Normal stomach. Erythematous mucosa in the antrum. Biopsied. Normal duodenal bulb and second portion of the duodenum. -- Pathology pending Appreciate GI Input Appreciate speech therapy help Started on PPI Advance to slippery esophageal diet as able Aspiration precautions Consider ENT evaluation/neck CT if patient persist to have dysphagia as was incidentally found to have prominent tissue near his vocal cords Dizziness DD: Due to recent CVA Vs orthostasis Orthostatics positive on 12/22 however now asymptomatic Resolved Multiple falls Ambulatory dysfunction Due to left-sided weakness from CVA Fall precautions PT OT: Needs Rehab Recent right MCA occlusion S/P MCA mechanical thrombectomy Right internal carotid artery occlusion S/P angioplasty and stent Left hemiplegia secondary to above Dysarthria secondary to above Continue aspirin, statin Hypertension Blood pressure intermittently low Continue lisinopril with holding parameters BPH On tamsulosin DM II Hold p.o. meds, Lantus and NovoLog per protocol while hospitalized Blood sugars controlled HbA1c 7.19 October 2022 Restless leg syndrome on ropinirole DVT Px SQ Lovenox Awaiting placement, possible dc tomorrow. A total of 35 minutes were spent with greater than 50% of that time face to face with the patient, personally reviewing all current laboratories, imaging studies, past medication reconciliation, outpatient chart review, and discussion with specialists to collaborate care for the patient with attending and utilization of translation services. Please see attending documentation for corrections and/or additions. Admission and Anticipated Discharge Date Admission Date: December 23, 2022 Supervising Physician Co-Signing Physician Notes Pt was seen and examined. Sitting in chair with no acute distress. S/P EGD with normal esophagus and empirically dilated. His diet advanced to full liquid. He said that he has not been regurgitated his food. Continue monitor full liquid diet. Speech on board. Case discussed with speech that plan to advance diet tomorrow if pt tolerates full liquid. Continue monitor closely. MD Billie Subjective Patient is seen and examined this morning. Feeling better after dilation of esophagus. Tolerating full liquids without issue. Denies any chest pain, nausea, vomiting, abdominal pain Review of Systems Review of Systems: At least ten systems reviewed and negative except as noted in the HPI. Physical Exam Physical Exam: Gen: WD/WN, NAD, sitting in bedside chair, A&Ox3 HEENT: Normocephalic, atraumatic, conjunctivae moist, sclerae anicteric, mucous membranes moist Lung: Clear to Auscultation bilaterally, no wheezes/rales/rhonchi Heart: Regular rate, regular rhythm, + murmurs, rubs, or gallops Abdomen: Soft, NT, ND +BS x 4 Extremities: no edema Skin: Warm, no rash Results & Data Results & Data ([facility]) Vital Signs (Past 12 Hours) Vital Signs Temp Pulse Resp BP Pulse Ox O2 Del Method 12/28/22 15:09 37.1 C 87 17 96/65 L 97 Room Air 12/28/22 08:00 Room Air 12/28/22 07:30 36.6 C 67 18 116/69 94 Room Air Laboratory Results BMP 12/28/22 07:39 Sodium 138 Potassium 3.9 Chloride 105 Carbon Dioxide 23 BUN 18 Creatinine 0.88 Glucose 79 Calcium 9.9 Diagnostic Findings Chest X-Ray 12/21/22 17:19 XR chest 1V portable CLINICAL HISTORY: illness COMPARISON STUDY: No previous studies for comparison. FINDINGS: Patient is rotated. Right shoulder arthroplasty is incidentally noted. No pneumothorax or pleural effusion is present. There is no consolidation or evidence for pulmonary edema. Minimal left basilar opacity favors atelectasis. IMPRESSION: No acute cardiopulmonary findings. ACT 112: Negative or not required by law. Electronically signed by: Kamar Elizalde M.D. 12/21/2022 5:55 PM Abdomen/Pelvis CT 12/21/22 19:[address] WITH IV CONTRAST CT DOSE: 503.65 mGy.cm HISTORY: Nausea. Vomiting., can not eat, eval for SBO TECHNIQUE: Multiaxial CT images of the abdomen and pelvis were performed following the use of intravenous contrast. A dose lowering technique was utilized adhering to the principles of ALARA. COMPARISON STUDY: None. FINDINGS: Mild dependent changes seen within the lung bases. No pneumoperitoneum. No pneumatosis. No acute fractures identified. There is a small hiatus hernia. Cholecystectomy. The liver, spleen, adrenal glands, and pancreas are unremarkable. No hydronephrosis. The left kidney enhances normally. There are 2 hypodense lesions within the right kidney which favor cysts. The largest in the lower pole measures 2.2 cm. No retroperitoneal lymphadenopathy. The main portal vein is patent. There is a left circumaortic renal vein. The bladder is unremarkable. The prostate gland is enlarged. There are fat- containing bilateral inguinal hernias. Colonic diverticulosis. No evidence for acute diverticulitis. No bowel wall thickening or obstruction. Normal appendix. IMPRESSION: 1. No bowel wall thickening or obstruction. 2. Normal appendix. 3. Colonic diverticulosis. No evidence for acute diverticulitis. 4. Prostatomegaly. ACT 112: Negative or not required by law. Electronically signed by: Rahul Markham M.D. 12/22/2022 9:15 AM Barium Swallow X-Ray 12/25/22 10:17 DOUBLE CONTRAST BARIUM ESOPHAGRAM CLINICAL HISTORY: Dysphagia. COMPARISON STUDY: No prior. TECHNIQUE: A standard air contrast barium esophagram is performed. Multiple spot images of the esophagus are acquired both upright and prone. FINDINGS: The patient swallowed barium without difficulty. The patient was unable to swallow the barium pill. There is faeu-yw-mmrmfwaj esophageal dysmotility. The mucosal pattern is normal. There is no evidence of intrinsic or extrinsic mass lesion. No aspiration was seen. The gastroesophageal junction distended normally. No gastroesophageal reflux could be elicited by having the patient perform the Valsalva maneuver. Fluoroscopy time: 1.5 minutes. Exposure: 56.53 mGy Fluoroscopic images: 13 spot images and 2 cine loops IMPRESSION: 1. Xwau-px-gmbesagw esophageal dysmotility. 2. The patient was unable to swallow the barium pill. ACT 112: Negative or not required by law. Electronically signed by: Daljit Carlson M.D. 12/25/2022 1:41 PM KUB X-Ray 12/26/22 10:59 KUB CLINICAL HISTORY: Constipation. COMPARISON STUDY: CT of the abdomen and pelvis December 21, 2022. FINDINGS: Contrast within the ascending colon from recent barium swallow is incidentally noted. There has been interval development of mild small bowel dilatation since prior CT. Jejunal loops measure up to 4.5 cm in caliber. There is gas throughout the colon and rectum. Amount of stool is within normal limits. IMPRESSION: Interval development of mild small bowel dilatation. This could reflect an ileus. A partial small bowel obstruction is considered less likely but could appear similar. ACT 112: Negative or not required by law. Electronically signed by: Kamar Elizalde M.D. 12/26/2022 12:05 PM KUB X-Ray 12/27/22 07:00 KUB CLINICAL HISTORY: Ileus. COMPARISON STUDY: CT of the abdomen and pelvis December 21, 2022 and KUB December 26, 2022. FINDINGS: Oral contrast within the colon from recent barium swallow is incidentally noted. Small bowel dilatation has improved since prior KUB. Small bowel loops now measure up to 3.4 cm in caliber. There is no evidence for free air on this supine exam. IMPRESSION: Interval improvement in small bowel dilatation. The findings favor an improving ileus. No convincing evidence for a bowel obstruction. ACT 112: Negative or not required by law. Electronically signed by: Kamar Elizalde M.D. 12/27/2022 9:18 AM
[2022-12-28] MEDS: ACETAMINOPHEN 325 MG TAB PO PRN (19:31)
[2022-12-28] MEDS: rOPINIRole HCL 1 MG TABLET PO SCH (19:32)
[2022-12-29] MEDS: ATORVASTATIN 40 MG TAB PO SCH (08:21)
[2022-12-29] MEDS: lisinopril 2.5 MG TAB PO SCH (08:21)
[2022-12-29] MEDS: TAMSULOSIN HCL 0.4 MG CAP PO SCH (08:21)
[2022-12-29] MEDS: ASPIRIN 81 MG ECTAB PO SCH (08:21)
[2022-12-29] MEDS: INSULIN ASPART PER UNIT SC SCH ×4 (08:21→20:53)
[2022-12-29] MEDS: PANTOprazole 40 MG TAB PO SCH (08:21)
[2022-12-29] MEDS: ENOXAPARIN INJ 40 MG/0.4 ML SYR SQ SCH (08:22)
[2022-12-29] MEDS: DOCUSATE SODIUM 100 MG CAP PO SCH ×2 (08:27→20:53)
[2022-12-29] MEDS: LANTUS PER UNIT CHARGE SQ SCH (08:27)
[2022-12-29] MEDS: POLYETHYLENE (MIRALAX) 17 GM PACK PO SCH (08:27)
--- NOTE | 2022-12-29 16:37 | Hospitalist Progress Note ---
Date of Service December 29, 2022 Assessment & Plan (1) Vomiting: Plan: Dysphagia Ileus --> resolved Nausea and Vomiting due to above Mild antral gastritis--biopsied --CT ABD/pelvis:No bowel wall thickening or obstruction. Normal appendix. Colonic diverticulosis. No evidence for acute diverticulitis. Prostatomegaly. --Barium Swallow:[id number]-ei-gkfrerlt esophageal dysmotility. The patient was unable to swallow the barium pill. --EGD:- Normal esophagus. Empirically dilated. Z-line regular, 35 cm from the incisors. Normal stomach. Erythematous mucosa in the antrum. Biopsied. Normal duodenal bulb and second portion of the duodenum. -- Pathology pending Appreciate GI Input Appreciate speech therapy help Started on PPI Advance to slippery esophageal diet as able Aspiration precautions Consider ENT evaluation/neck CT if patient persist to have dysphagia as was incidentally found to have prominent tissue near his vocal cords Tolerated full liquid diet, then advanced to easy to chew with slippery as per speech Spoke to that patient will need to be evaluated by ENT outpatient If able to tolerate diet plan discharge tomorrow to [facility] Dizziness DD: Due to recent CVA Vs orthostasis Orthostatics positive on 12/22 however now asymptomatic Resolved Multiple falls Ambulatory dysfunction Due to left-sided weakness from CVA Fall precautions PT OT: Needs Rehab Recent right MCA occlusion S/P MCA mechanical thrombectomy Right internal carotid artery occlusion S/P angioplasty and stent Left hemiplegia secondary to above Dysarthria secondary to above Continue aspirin, statin Hypertension Blood pressure intermittently low Continue lisinopril with holding parameters BPH On tamsulosin DM II Hold p.o. meds, Lantus and NovoLog per protocol while hospitalized Blood sugars controlled HbA1c 7.19 October 2022 Restless leg syndrome on ropinirole DVT Px SQ Lovenox Disposition Plan to discharge to [facility] tomorrow if tolerates diet Admission and Anticipated Discharge Date Admission Date: December 23, 2022 Subjective Pt was seen and examined for follow up of dysphagia. Sitting in chair with no acute distress. Pt said that he was able to tolerate the full liquid diet He is a little reluctant to try easy to chew diet because he is afraid that will make him vomit was not happy this morning and she was concerned because pt will be discharged to [facility] Son called early and requested to speak to the doctor. I asked pt who he wanted me to call. Pt said that to his his because she is the boss. I called and spent about 25 minutes on the phone to explain to her and updated him about his progress. I explained to that pt diet will need to advance slowly as tolerated in the next few days or weeks I told if pt unable to tolerate the easy to chew diet, that will change his diet back to full liquid and stay on that for awhile I explained to her that when the patient discharges to centre [facility] that he will continue follow with speech therapy Also pt will need to evaluate by ENT outpatient. I explained to that patient does not have to stay in the hospital until his diet fully advanced since this is a working progress that can continue managing at centre care by speech therapy I advised the to reach out to her son to update him since i will not call him. Pt denies any chest pain, palpitation, dizziness and SOB Review of Systems Review of Systems: All systems reviewed & are unremarkable except as noted in Subjective Physical Exam Physical Exam: General Appearance:Moderately built and nourished, no apparent distress Head: normocephalic, Atraumatic Eyes: normal inspection, EOMI Neck: supple, Trachea midline Respiratory/Chest: Normal breath sounds, CTA, No accessory muscle use Cardiovascular: S1, S2, + murmur Abdomen/GI:Soft, Non tender, Bowel sounds present Extremities/Musculoskeletal:normal inspection, no edema Neurologic/Psych:AAOX3, Mild L LE weakness 4/5 Skin: normal color, warm Results & Data Results & Data ([facility]) Vital Signs (Past 12 Hours) Vital Signs Temp Pulse Resp BP Pulse Ox O2 Del Method 12/29/22 15:43 36.4 C L 77 16 99/62 L 93 Room Air 12/29/22 08:00 Room Air 12/29/22 07:34 36.9 C 74 16 101/61 96 Room Air
[2022-12-29] MEDS: rOPINIRole HCL 1 MG TABLET PO SCH (20:53)
[2022-12-30] MEDS: ENOXAPARIN INJ 40 MG/0.4 ML SYR SQ SCH (09:00)
[2022-12-30] MEDS: PANTOprazole 40 MG TAB PO SCH (09:00)
[2022-12-30] MEDS: TAMSULOSIN HCL 0.4 MG CAP PO SCH (09:00)
[2022-12-30] MEDS: ATORVASTATIN 40 MG TAB PO SCH (09:00)
[2022-12-30] MEDS: ASPIRIN 81 MG ECTAB PO SCH (09:00)
[2022-12-30] MEDS: INSULIN ASPART PER UNIT SC SCH ×4 (09:01→21:34)
[2022-12-30] MEDS: lisinopril 2.5 MG TAB PO SCH (09:01)
[2022-12-30] MEDS: LANTUS PER UNIT CHARGE SQ SCH (09:05)
[2022-12-30] MEDS: ACETAMINOPHEN 325 MG TAB PO PRN (09:05)
[2022-12-30] MEDS: DOCUSATE SODIUM 100 MG CAP PO SCH ×2 (09:05→21:22)
[2022-12-30] MEDS: POLYETHYLENE (MIRALAX) 17 GM PACK PO SCH (09:07)
--- NOTE | 2022-12-30 15:20 | Hospitalist Progress Note ---
Date of Service December 30, 2022 Assessment & Plan (1) Vomiting: Plan: Dysphagia Ileus --> resolved . Complicated by recent stroke Ongoing difficulty in swallowing semisolid/solid foods Cannot tolerate liquids only Mild antral gastritis in EGD--biopsied.Started on PPI Other significant test as below: --CT ABD/pelvis:No bowel wall thickening or obstruction. Normal appendix. Colonic diverticulosis. No evidence for acute diverticulitis. Prostatomegaly. --Barium Swallow:Qdjy-ly-sjauyeue esophageal dysmotility. The patient was unable to swallow the barium pill. --EGD:- Normal esophagus. Empirically dilated. Z-line regular, 35 cm from the incisors. Normal stomach. Erythematous mucosa in the antrum. Biopsied. Normal duodenal bulb and second portion of the duodenum. Appreciate GI Input and recommendation Appreciate speech therapy help Advance to slippery esophageal diet as able-patient has not been able to keep these slippery diet down without being choked Aspiration precautions We will continue with liquid diet today and try to put him on small dose of Reglan Recent right MCA occlusion S/P MCA mechanical thrombectomy in [facility] Right internal carotid artery occlusion S/P angioplasty and stent Left hemiplegia secondary to above-left upper extremity weakness more than the right and has been getting physical therapy Minimal dysarthria secondary to above Continue aspirin, statin Incidental finding of a prominent tissue near the vocal cord during EGD No speech abnormality Doubt it is causing any problem with swallowing We will get an ENT opinion as an outpatient Dizziness DD: Due to recent CVA Vs orthostasis Orthostatics positive on 12/22 however now asymptomatic Resolved Multiple falls Ambulatory dysfunction Due to left-sided weakness from CVA Fall precautions PT OT: Needs Rehab Hypertension Blood pressure intermittently low Continue lisinopril with holding parameters BPH On tamsulosin DM II Hold p.o. meds, Lantus and NovoLog per protocol while hospitalized Blood sugars controlled HbA1c 7.19 October 2022 Restless leg syndrome on ropinirole DVT Px SQ Lovenox Disposition Plan to discharge to [facility] tomorrow if tolerates diet Admission and Anticipated Discharge Date Admission Date: December 23, 2022 Subjective 12/30/2022 The patient was seen and examined in medical floor He is status post EGD with dilatation of the esophagus without any known history of stricture Has been tolerating clear liquid but cannot tolerate any advance diet given slippery and/or pured diet Denies any other significant symptoms Review of Systems Review of Systems: All systems reviewed and are unremarkable except as noted below Gastrointestinal: Cannot swallow any food other than liquid Physical Exam Physical Exam: Lying in bed comfortably Constitutional: well developed, well nourished, + ill appearing and average body habitus Eyes: PERRL, conjunctivae normal, anicteric sclerae ENMT: external ear and nose normal, oropharynx normal Neck: trachea midline, no thyromegaly Respiratory: no respiratory distress Auscultation: lungs clear to auscultation bilaterally Cardiovascular: Rate/Rhythm: regular rate and regular rhythm; not tachycardic Heart Sounds: normal S1 and normal S2; no murmur Extremities: no edema Gastrointestinal (Abdomen): Inspection/Auscultation: normal bowel sounds; abdomen not distended Percussion/Palpation: abdomen soft; abdomen nontender Musculoskeletal: No acute arthritis in any joint Neurologic: Alert, awake and oriented x3. Has minimal left upper extremity weakness from recent stroke Lymphatic: no cervical or axillary lymphadenopathy Results & Data Results & Data ([facility]) Vital Signs (Past 12 Hours) Vital Signs Temp Pulse Pulse Resp BP Pulse Ox O2 Del Method 12/30/22 14:51 36.7 C 90 16 90/54 L 97 Room Air 12/30/22 08:00 36.6 C 60 14 145/75 H 94 Room Air Medications Administered Current Inpatient Medications Acetaminophen (Acetaminophen 325 Mg Tab) 650 mg PO Q4H PRN PRN Reason: pain/fever Stop: 01/21/23 03:58 Last Admin: 12/30/22 09:05 Dose: 650 mg Aspirin (Aspirin 81 Mg Ectab) 81 mg PO QAM [facility] Stop: 01/21/23 08:59 Last Admin: 12/30/22 09:00 Dose: 81 mg Atorvastatin Calcium (Atorvastatin 40 Mg Tab) 40 mg PO QAM [facility] Stop: 01/21/23 08:59 Last Admin: 12/30/22 09:00 Dose: 40 mg Dextrose (Dextrose 50% 50 Ml Syringe) 25 - 50 ml IV UD PRN; Protocol PRN Reason: Hypoglycemia Protocol Stop: 01/21/23 03:58 Docusate Sodium (Docusate Sodium 100 Mg Cap) 100 mg PO BID [facility] Stop: 01/23/23 11:14 Last Admin: 12/30/22 09:05 Dose: 100 mg Enoxaparin Sodium (Enoxaparin Inj 40 Mg/0.4 Ml Syr) 40 mg SQ QAM [facility] Stop: 01/21/23 08:59 Last Admin: 12/30/22 09:00 Dose: 40 mg Glucagon (Glucagon For Inj 1 Mg Vial) 1 mg SQ UD PRN; Protocol PRN Reason: Hypoglycemia Protocol Stop: 01/21/23 03:58 Glucose (Glucose 40% Gel 15 Gm Tube) 15 - 30 gm PO UD PRN; Protocol PRN Reason: Hypoglycemia Protocol Stop: 01/21/23 03:58 Glucose (Glucose 10 Tab/Tube) 4 - 8 tab PO UD PRN; Protocol PRN Reason: Hypoglycemia Treatment Stop: 01/21/23 03:58 Promethazine HCl 12.5 mg/ (Sodium Chloride) 50.5 mls @ 202 mls/hr IV Q6H PRN PRN Reason: Nausea And Vomiting Stop: 01/21/23 03:58 Last Infusion: 12/27/22 00:01 Dose: Infused Insulin Aspart (Insulin Aspart Per Unit) 0 units SC ACHS [facility] Stop: 01/21/23 05:59 Last Admin: 12/30/22 12:19 Dose: Not Given Insulin Glargine (Lantus Per Unit Charge) 5 units SQ DAILY [facility] Stop: 01/21/23 08:59 Last Admin: 12/30/22 09:05 Dose: 5 units Lisinopril (Lisinopril 2.5 Mg Tab) 2.5 mg PO QAM [facility] Stop: 01/21/23 08:59 Last Admin: 12/30/22 09:01 Dose: 2.5 mg Miscellaneous (Carbohydrates For Hypoglycemia ) 15 - 30 gm PO UD PRN PRN Reason: Hypoglycemia Protocol Stop: 01/21/23 03:58 Pantoprazole Sodium (Pantoprazole 40 Mg Tab) 40 mg PO QAM [facility] Stop: 01/26/23 16:14 Last Admin: 12/30/22 09:00 Dose: 40 mg Polyethylene Glycol (Polyethylene (Miralax) 17 Gm Pack) 17 gm PO DAILY [facility] Stop: 01/23/23 11:14 Last Admin: 12/30/22 09:07 Dose: Not Given Ropinirole HCl (Ropinirole Hcl 1 Mg Tablet) 3 mg PO HS [facility] Stop: 03/13/23 20:59 Last Admin: 12/29/22 20:53 Dose: 3 mg Tamsulosin HCl (Tamsulosin Hcl 0.4 Mg Cap) 0.4 mg PO QAM [facility] Stop: 01/21/23 08:59 Last Admin: 12/30/22 09:00 Dose: 0.4 mg
[2022-12-30] MEDS ORDERED: METOCLOPRAMIDE HCL INJ 5 MG/ML 2 ML VIAL IV ONE (15:32)
[2022-12-30] MEDS: rOPINIRole HCL 1 MG TABLET PO SCH (21:22)
[2022-12-31] MEDS ORDERED: diphenhydrAMINE Capsule 25 MG CAP PO ONE (00:02)
[2022-12-31] MEDS: INSULIN ASPART PER UNIT SC SCH ×4 (09:08→20:43)
[2022-12-31] MEDS: POLYETHYLENE (MIRALAX) 17 GM PACK PO SCH (09:12)
[2022-12-31] MEDS: PANTOprazole 40 MG TAB PO SCH (09:12)
[2022-12-31] MEDS: LANTUS PER UNIT CHARGE SQ SCH (09:12)
[2022-12-31] MEDS: DOCUSATE SODIUM 100 MG CAP PO SCH ×2 (09:12→20:30)
[2022-12-31] MEDS: ATORVASTATIN 40 MG TAB PO SCH (09:12)
[2022-12-31] MEDS: ASPIRIN 81 MG ECTAB PO SCH (09:12)
[2022-12-31] MEDS: TAMSULOSIN HCL 0.4 MG CAP PO SCH (09:12)
[2022-12-31] MEDS: ENOXAPARIN INJ 40 MG/0.4 ML SYR SQ SCH (09:12)
[2022-12-31] MEDS: lisinopril 2.5 MG TAB PO SCH (09:15)
--- NOTE | 2022-12-31 12:44 | Neurology Consultation ---
Date of Consultation December 31, 2022 Assessment & Plan (1) Dysphagia: Plan NEUROLOGY CONSULTATION Assessment & Plan: Impression: pt with chronic esophageal dysmotility likely from his prior stroke. it is common to have dysphagia after large MCA stroke. pt may have some anxiety about eating also contributing to his difficulty eating. Recommendations: -continue GI and speech path treatment and evaluation. not much to offer from neurology at this point. he will need custodial swallowing exercise and treatment from speech path. will sign off. Dr. Wilner Herbert MD [facility] Neurology Chief Complaint: dysphagia. History of Present Illness: HPI: pt with prior rt MCA stroke back in october 2022 and continue to have swallowing problem. EGD negative. barium swallow study noted for moderate degree of esophageal motility problem. pt able to tolerate liquid diet but afraid that he will choke on food. pt chart reviewed. Past Medical History: See chart Meds: See chart I personally reviewed all of the medications Social & Family History: See chart Review of Systems: Per initial HPI on admission. Physical Exam: GEN: NAD HEENT: Normocephalic Neuro: Mental status:A & O x 3.No dysarthria or aphasia.No neglect. Fluent speech. No apraxia Cranial Nerves:II-XII intact Motor:Normal bulk and tone,5/5 rt side. 4+/5 left upper and lower. Coordination:Intact Sensation: Intact x 4 extremities to touch Chart reviewed I have spent more than 50% educating patient about potential diagnosis and neurological evaluation and coordinating care with patient's treatment team. Total time spent (including chart review and coordination of care): 80 min (this includes chart review). History of Present Illness Attending Physician: Bob Chow MD Allergies Allergy/AdvReac Type Severity Reaction Status Date / Time bee venom protein (honey bee) Allergy Anaphylaxis Verified 12/21/22 20:00 codeine Allergy Anaphylaxis Verified 12/21/22 20:00 Home Medications Medication Instructions Recorded Confirmed Type aspirin 81 mg tablet,delayed 81 mg PO QAM 12/21/22 12/21/22 History release atorvastatin 40 mg tablet 40 mg PO QAM 12/21/22 12/21/22 History celecoxib 200 mg capsule 200 mg PO BID 12/21/22 12/21/22 History empagliflozin 10 mg tablet 10 mg PO QAM 12/21/22 12/21/22 History lisinopril 10 mg tablet 5 mg PO QAM 12/21/22 12/21/22 History metformin 500 mg tablet 500 mg PO BIDWMEAL 12/21/22 12/21/22 History ropinirole 2 mg tablet 3 mg PO HS 12/21/22 12/21/22 History tamsulosin 0.4 mg capsule 0.4 mg PO QAM 12/21/22 12/21/22 History Patient History Medical History (Updated 12/24/22 @ 15:47 by Malik Angulo MD) Diabetes Encounter for pre-operative examination Hypertension Social History (Updated 11/09/22 @ 20:19 by Romana Lisa MD) Smoking Status: Never smoker Hx Alcohol Use: No Hx Substance Use: No Preferred Language: Yemeni Communication Ability: Effective Script Writer Required: No Beliefs That Will Affect Care: None marital status: Current Living Situation: Spouse Other Information That Helps Us Care for You: No Feels Safe at Home: Yes Safety Concerns: Feels Safe At This Time Assistive Devices: Walker Results & Data ([facility]) Vital Signs (Past 12 Hours) Vital Signs Temp Pulse Resp BP Pulse Ox O2 Del Method 12/31/22 09:00 Room Air 12/31/22 07:19 36.5 C 82 17 91/53 L 94 Room Air
--- NOTE | 2022-12-31 18:25 | Hospitalist Progress Note ---
Date of Service December 31, 2022 Assessment & Plan (1) Vomiting: Plan: Dysphagia Ileus --> resolved Nausea and Vomiting due to above Mild antral gastritis--biopsied --CT ABD/pelvis:No bowel wall thickening or obstruction. Normal appendix. Colonic diverticulosis. No evidence for acute diverticulitis. Prostatomegaly. --Barium Swallow:[id number] esophageal dysmotility. The patient was unable to swallow the barium pill. --EGD:- Normal esophagus. Empirically dilated. Z-line regular, 35 cm from the incisors. Normal stomach. Erythematous mucosa in the antrum. Biopsied. Normal duodenal bulb and second portion of the duodenum. -- Pathology pending Appreciate GI Input Appreciate speech therapy help Started on PPI Advance to slippery esophageal diet as able Aspiration precautions Consider ENT evaluation/neck CT if patient persist to have dysphagia as was incidentally found to have prominent tissue near his vocal cords Appreciate neurology input and recommendation Dysphagia is likely secondary to recent stroke and will check long time to improve He is to comply with speech therapist recommendation Likely discharge when bed is available for rehab Dizziness DD: Due to recent CVA Vs orthostasis Orthostatics positive on 12/22 however now asymptomatic Resolved Multiple falls Ambulatory dysfunction Due to left-sided weakness from CVA Fall precautions PT OT: Needs Rehab Recent right MCA occlusion S/P MCA mechanical thrombectomy Right internal carotid artery occlusion S/P angioplasty and stent Left hemiplegia secondary to above Dysarthria secondary to above Continue aspirin, statin Hypertension Blood pressure intermittently low Continue lisinopril with holding parameters BPH On tamsulosin DM II Hold p.o. meds, Lantus and NovoLog per protocol while hospitalized Blood sugars controlled HbA1c 7.19 October 2022 Restless leg syndrome on ropinirole DVT Px SQ Lovenox Awaiting placement, possible dc tomorrow. Admission and Anticipated Discharge Date Admission Date: December 23, 2022 Subjective 12/30/2022 The patient was seen and examined in medical floor He is status post EGD with dilatation of the esophagus without any known history of stricture Has been tolerating clear liquid but cannot tolerate any advance diet given slippery and/or pured diet Denies any other significant symptoms 12/31/2022 The patient was seen and examined in medical floor He cannot tolerate liquid diet but cannot go anything beyond that Explained he is swallowing problem with him in detail He will have to continue with the current recommendation from the speech therapist and he is agreeable to that Review of Systems Review of Systems: All systems reviewed and are unremarkable except as noted below Gastrointestinal: Cannot swallow any food other than liquid Physical Exam Physical Exam: Lying in bed comfortably Constitutional: well developed, well nourished, + ill appearing and average body habitus Eyes: PERRL, conjunctivae normal, anicteric sclerae ENMT: external ear and nose normal, oropharynx normal Neck: trachea midline, no thyromegaly Respiratory: no respiratory distress Auscultation: lungs clear to auscultation bilaterally Cardiovascular: Rate/Rhythm: regular rate and regular rhythm; not tachycardic Heart Sounds: normal S1 and normal S2; no murmur Extremities: no edema Gastrointestinal (Abdomen): Inspection/Auscultation: normal bowel sounds; abdomen not distended Percussion/Palpation: abdomen soft; abdomen nontender Lymphatic: no cervical or axillary lymphadenopathy Results & Data Results & Data ([facility]) Vital Signs (Past 12 Hours) Vital Signs Temp Pulse Resp BP Pulse Ox O2 Del Method 12/31/22 14:22 36.6 C 89 18 103/67 97 Room Air 12/31/22 09:00 Room Air 12/31/22 07:19 36.5 C 82 17 91/53 L 94 Room Air Diagnostic Findings Current Inpatient Medications Acetaminophen (Acetaminophen 325 Mg Tab) 650 mg PO Q4H PRN PRN Reason: pain/fever Stop: 01/21/23 03:58 Last Admin: 12/30/22 09:05 Dose: 650 mg Aspirin (Aspirin 81 Mg Ectab) 81 mg PO QAM [facility] Stop: 01/21/23 08:59 Last Admin: 12/31/22 09:12 Dose: 81 mg Atorvastatin Calcium (Atorvastatin 40 Mg Tab) 40 mg PO QAM [facility] Stop: 01/21/23 08:59 Last Admin: 12/31/22 09:12 Dose: 40 mg Dextrose (Dextrose 50% 50 Ml Syringe) 25 - 50 ml IV UD PRN; Protocol PRN Reason: Hypoglycemia Protocol Stop: 01/21/23 03:58 Docusate Sodium (Docusate Sodium 100 Mg Cap) 100 mg PO BID [facility] Stop: 01/23/23 11:14 Last Admin: 12/31/22 09:12 Dose: 100 mg Enoxaparin Sodium (Enoxaparin Inj 40 Mg/0.4 Ml Syr) 40 mg SQ QAM [facility] Stop: 01/21/23 08:59 Last Admin: 12/31/22 09:12 Dose: 40 mg Glucagon (Glucagon For Inj 1 Mg Vial) 1 mg SQ UD PRN; Protocol PRN Reason: Hypoglycemia Protocol Stop: 01/21/23 03:58 Glucose (Glucose 40% Gel 15 Gm Tube) 15 - 30 gm PO UD PRN; Protocol PRN Reason: Hypoglycemia Protocol Stop: 01/21/23 03:58 Glucose (Glucose 10 Tab/Tube) 4 - 8 tab PO UD PRN; Protocol PRN Reason: Hypoglycemia Treatment Stop: 01/21/23 03:58 Promethazine HCl 12.5 mg/ (Sodium Chloride) 50.5 mls @ 202 mls/hr IV Q6H PRN PRN Reason: Nausea And Vomiting Stop: 01/21/23 03:58 Last Infusion: 12/27/22 00:01 Dose: Infused Insulin Aspart (Insulin Aspart Per Unit) 0 units SC ACHS [facility] Stop: 01/21/23 05:59 Last Admin: 12/31/22 18:10 Dose: Not Given Insulin Glargine (Lantus Per Unit Charge) 5 units SQ DAILY [facility] Stop: 01/21/23 08:59 Last Admin: 12/31/22 09:12 Dose: 5 units Lisinopril (Lisinopril 2.5 Mg Tab) 2.5 mg PO QAM [facility] Stop: 01/21/23 08:59 Last Admin: 12/31/22 09:15 Dose: Not Given Miscellaneous (Carbohydrates For Hypoglycemia ) 15 - 30 gm PO UD PRN PRN Reason: Hypoglycemia Protocol Stop: 01/21/23 03:58 Pantoprazole Sodium (Pantoprazole 40 Mg Tab) 40 mg PO QAM [facility] Stop: 01/26/23 16:14 Last Admin: 12/31/22 09:12 Dose: 40 mg Polyethylene Glycol (Polyethylene (Miralax) 17 Gm Pack) 17 gm PO DAILY [facility] Stop: 01/23/23 11:14 Last Admin: 12/31/22 09:12 Dose: 17 gm Ropinirole HCl (Ropinirole Hcl 1 Mg Tablet) 3 mg PO HS [facility] Stop: 01/21/23 20:59 Last Admin: 12/30/22 21:22 Dose: 3 mg Tamsulosin HCl (Tamsulosin Hcl 0.4 Mg Cap) 0.4 mg PO QAM [facility] Stop: 01/21/23 08:59 Last Admin: 12/31/22 09:12 Dose: 0.4 mg
[2022-12-31] MEDS: rOPINIRole HCL 1 MG TABLET PO SCH (20:30)
[2023-01-01] MEDS: ACETAMINOPHEN 325 MG TAB PO PRN (04:44)
[2023-01-01] MEDS ORDERED: ONDANSETRON INJ 2 MG/ML 2 ML VIAL IV STA (04:57)
[2023-01-01] MEDS: ASPIRIN 81 MG ECTAB PO SCH (08:38)
[2023-01-01] MEDS: ATORVASTATIN 40 MG TAB PO SCH (08:38)
[2023-01-01] MEDS: lisinopril 2.5 MG TAB PO SCH (08:38)
[2023-01-01] MEDS: TAMSULOSIN HCL 0.4 MG CAP PO SCH (08:38)
[2023-01-01] MEDS: PANTOprazole 40 MG TAB PO SCH (08:38)
[2023-01-01] MEDS: ENOXAPARIN INJ 40 MG/0.4 ML SYR SQ SCH (08:40)
[2023-01-01] MEDS: INSULIN ASPART PER UNIT SC SCH ×4 (08:41→20:45)
[2023-01-01] MEDS: LANTUS PER UNIT CHARGE SQ SCH (08:45)
[2023-01-01] MEDS: POLYETHYLENE (MIRALAX) 17 GM PACK PO SCH (08:45)
[2023-01-01] MEDS: DOCUSATE SODIUM 100 MG CAP PO SCH ×2 (08:45→21:47)
--- NOTE | 2023-01-01 17:52 | Hospitalist Progress Note ---
Date of Service January 01, 2023 Assessment & Plan (1) Vomiting: Plan: Dysphagia Ileus --> resolved Nausea and Vomiting due to above Mild antral gastritis--biopsied --CT ABD/pelvis:No bowel wall thickening or obstruction. Normal appendix. Colonic diverticulosis. No evidence for acute diverticulitis. Prostatomegaly. --Barium Swallow:[id number] esophageal dysmotility. The patient was unable to swallow the barium pill. --EGD:- Normal esophagus. Empirically dilated. Z-line regular, 35 cm from the incisors. Normal stomach. Erythematous mucosa in the antrum. Biopsied. Normal duodenal bulb and second portion of the duodenum. -- Pathology pending Appreciate GI Input Appreciate speech therapy help Started on PPI Advance to slippery esophageal diet as able Aspiration precautions Consider ENT evaluation/neck CT if patient persist to have dysphagia as was incidentally found to have prominent tissue near his vocal cords Appreciate neurology input and recommendation Dysphagia is likely secondary to recent stroke and will check long time to improve He is to comply with speech therapist recommendation Likely discharge when bed is available for rehab Explained the cause of dysphagia and the importance of continuing speech therapy in the facility Dizziness DD: Due to recent CVA Vs orthostasis Orthostatics positive on 12/22 however now asymptomatic Resolved Multiple falls Ambulatory dysfunction Due to left-sided weakness from CVA Fall precautions PT OT: Needs Rehab Recent right MCA occlusion S/P MCA mechanical thrombectomy Right internal carotid artery occlusion S/P angioplasty and stent Left hemiplegia secondary to above Dysarthria secondary to above Continue aspirin, statin Continue PT and OT and speech therapy Hypertension Blood pressure intermittently low Continue lisinopril with holding parameters BPH On tamsulosin DM II Hold p.o. meds, Lantus and NovoLog per protocol while hospitalized Blood sugars controlled HbA1c 7.19 October 2022 Restless leg syndrome on ropinirole DVT Px SQ Lovenox Possible discharge tomorrow Admission and Anticipated Discharge Date Admission Date: December 23, 2022 Subjective 12/30/2022 The patient was seen and examined in medical floor He is status post EGD with dilatation of the esophagus without any known history of stricture Has been tolerating clear liquid but cannot tolerate any advance diet given slippery and/or pured diet Denies any other significant symptoms 12/31/2022 The patient was seen and examined in medical floor He cannot tolerate liquid diet but cannot go anything beyond that Explained he is swallowing problem with him in detail He will have to continue with the current recommendation from the speech therapist and he is agreeable to that 01/01/2023 The patient was seen and examined in medical floor He has been tolerating liquid diet and has had ice cream and Jell-O for the first time today Discussed with the family members about swallowing issues and speech therapy which will be continued in the facility Likely DC tomorrow or day after Review of Systems Review of Systems: All systems reviewed and are unremarkable except as noted below Gastrointestinal: Cannot swallow any food other than liquid Physical Exam Physical Exam: Lying in bed comfortably Constitutional: well developed, well nourished, + ill appearing and average body habitus Eyes: PERRL, conjunctivae normal, anicteric sclerae ENMT: external ear and nose normal, oropharynx normal Neck: trachea midline, no thyromegaly Respiratory: no respiratory distress Auscultation: lungs clear to auscultation bilaterally Cardiovascular: Rate/Rhythm: regular rate and regular rhythm; not tachycardic Heart Sounds: normal S1 and normal S2; no murmur Extremities: no edema Gastrointestinal (Abdomen): Inspection/Auscultation: normal bowel sounds; abdomen not distended Percussion/Palpation: abdomen soft; abdomen nontender Musculoskeletal: No acute arthritis involving any joint Neurologic: Alert, awake and oriented x3, dysphagia and left upper extremity weakness from recent stroke Lymphatic: no cervical or axillary lymphadenopathy Results & Data Results & Data ([facility]) Vital Signs (Past 12 Hours) Vital Signs Temp Pulse Pulse Resp BP Pulse Ox O2 Del Method 01/01/23 15:31 36.4 C L 73 16 102/65 96 Room Air 01/01/23 12:06 36.6 C 68 16 110/68 94 Room Air 01/01/23 11:28 36.4 C L 66 14 104/64 92 Room Air 01/01/23 09:59 72 112/64 95 Room Air 01/01/23 08:00 Room Air 01/01/23 07:44 36.2 C L 67 16 107/65 92 Room Air Medications Administered Current Inpatient Medications Acetaminophen (Acetaminophen 325 Mg Tab) 650 mg PO Q4H PRN PRN Reason: pain/fever Stop: 01/21/23 03:58 Last Admin: 01/01/23 04:44 Dose: 650 mg Aspirin (Aspirin 81 Mg Ectab) 81 mg PO QAM [facility] Stop: 01/21/23 08:59 Last Admin: 01/01/23 08:38 Dose: 81 mg Atorvastatin Calcium (Atorvastatin 40 Mg Tab) 40 mg PO QAM [facility] Stop: 01/21/23 08:59 Last Admin: 01/01/23 08:38 Dose: 40 mg Dextrose (Dextrose 50% 50 Ml Syringe) 25 - 50 ml IV UD PRN; Protocol PRN Reason: Hypoglycemia Protocol Stop: 01/21/23 03:58 Docusate Sodium (Docusate Sodium 100 Mg Cap) 100 mg PO BID [facility] Stop: 01/23/23 11:14 Last Admin: 01/01/23 08:45 Dose: 100 mg Enoxaparin Sodium (Enoxaparin Inj 40 Mg/0.4 Ml Syr) 40 mg SQ QAM [facility] Stop: 01/21/23 08:59 Last Admin: 01/01/23 08:40 Dose: 40 mg Glucagon (Glucagon For Inj 1 Mg Vial) 1 mg SQ UD PRN; Protocol PRN Reason: Hypoglycemia Protocol Stop: 01/21/23 03:58 Glucose (Glucose 40% Gel 15 Gm Tube) 15 - 30 gm PO UD PRN; Protocol PRN Reason: Hypoglycemia Protocol Stop: 01/21/23 03:58 Glucose (Glucose 10 Tab/Tube) 4 - 8 tab PO UD PRN; Protocol PRN Reason: Hypoglycemia Treatment Stop: 01/21/23 03:58 Promethazine HCl 12.5 mg/ (Sodium Chloride) 50.5 mls @ 202 mls/hr IV Q6H PRN PRN Reason: Nausea And Vomiting Stop: 01/21/23 03:58 Last Infusion: 12/27/22 00:01 Dose: Infused Insulin Aspart (Insulin Aspart Per Unit) 0 units SC [facility] Stop: 01/21/23 05:59 Last Admin: 01/01/23 17:11 Dose: Not Given Insulin Glargine (Lantus Per Unit Charge) 5 units SQ DAILY [facility] Stop: 01/21/23 08:59 Last Admin: 01/01/23 08:45 Dose: 5 units Lisinopril (Lisinopril 2.5 Mg Tab) 2.5 mg PO [facility] Stop: 01/21/23 08:59 Last Admin: 01/01/23 08:38 Dose: 2.5 mg Miscellaneous (Carbohydrates For Hypoglycemia ) 15 - 30 gm PO UD PRN PRN Reason: Hypoglycemia Protocol Stop: 01/21/23 03:58 Pantoprazole Sodium (Pantoprazole 40 Mg Tab) 40 mg PO QAM [facility] Stop: 01/26/23 16:14 Last Admin: 01/01/23 08:38 Dose: 40 mg Polyethylene Glycol (Polyethylene (Miralax) 17 Gm Pack) 17 gm PO DAILY [facility] Stop: 01/23/23 11:14 Last Admin: 01/01/23 08:45 Dose: 17 gm Ropinirole HCl (Ropinirole Hcl 1 Mg Tablet) 3 mg PO HS [facility] Stop: 01/21/23 20:59 Last Admin: 12/31/22 20:30 Dose: 3 mg Tamsulosin HCl (Tamsulosin Hcl 0.4 Mg Cap) 0.4 mg PO QAM [facility] Stop: 01/21/23 08:59 Last Admin: 01/01/23 08:38 Dose: 0.4 mg
[2023-01-01] MEDS: rOPINIRole HCL 1 MG TABLET PO SCH (21:45)
[2023-01-01 21:55] VITALS: TEMP 98.2
[2023-01-02 07:27] VITALS: BP 102/62; PULSE 59; O2SAT 96
[2023-01-02] MEDS: ASPIRIN 81 MG ECTAB PO SCH (09:12)
[2023-01-02] MEDS: ATORVASTATIN 40 MG TAB PO SCH (09:12)
[2023-01-02] MEDS: ENOXAPARIN INJ 40 MG/0.4 ML SYR SQ SCH (09:14)
[2023-01-02] MEDS: PANTOprazole 40 MG TAB PO SCH (09:17)
[2023-01-02] MEDS: TAMSULOSIN HCL 0.4 MG CAP PO SCH (09:18)
[2023-01-02] MEDS: DOCUSATE SODIUM 100 MG CAP PO SCH (09:44)
[2023-01-02] MEDS: POLYETHYLENE (MIRALAX) 17 GM PACK PO SCH (09:44)
[2023-01-02] MEDS: LANTUS PER UNIT CHARGE SQ SCH (09:56)
[2023-01-02] MEDS: INSULIN ASPART PER UNIT SC SCH ×2 (09:59→12:32)
--- NOTE | 2023-01-02 11:10 | Hospitalist Progress Note ---
Date of Service January 02, 2023 Assessment & Plan (1) Vomiting: Plan: per Dr. Chow's notes with addendum: Dysphagia secondary to recent CVA Ileus --> resolved Nausea and Vomiting due to above Mild antral gastritis--biopsied --CT ABD/pelvis:No bowel wall thickening or obstruction. Normal appendix. Colonic diverticulosis. No evidence for acute diverticulitis. Prostatomegaly. --Barium Swallow:[id number] esophageal dysmotility. The patient was unable to swallow the barium pill. --EGD:- Normal esophagus. Empirically dilated. Z-line regular, 35 cm from the incisors. Normal stomach. Erythematous mucosa in the antrum. Biopsied. Normal duodenal bulb and second portion of the duodenum. -- Pathology: Stomach biopsy: Chronic gastritis H. pylori stain: Negative Esophag gross biopsy: Squamous mucosa only, focal parakeratosis, negative for fungi Appreciate GI Input Appreciate speech therapy help Started on PPI Advance to slippery esophageal diet as able Aspiration precautions ENT evaluation/neck CT for finding of prominent tissue near his vocal cords Appreciate neurology input and recommendation Dysphagia is likely secondary to recent stroke and will take a long time to improve He is to comply with speech therapist recommendation Discharge plan: Minced and moist diet Aspiration precautions Continue speech therapy evaluation Continue Protonix daily ENT follow-up to evaluate prominent tissue on the vocal cords Dizziness DD: Due to recent CVA Vs orthostasis Orthostatics positive on 12/22 however now asymptomatic Resolved Multiple falls Ambulatory dysfunction Due to left-sided weakness from CVA Fall precautions PT OT: Needs Rehab Recent right MCA occlusion S/P MCA mechanical thrombectomy Right internal carotid artery occlusion S/P angioplasty and stent Left hemiplegia secondary to above Dysarthria secondary to above Continue aspirin, statin Continue PT and OT and speech therapy Hypertension Blood pressure intermittently low Discontinue lisinopril Monitor blood pressure closely BPH On tamsulosin DM II Hold p.o. meds, Lantus and NovoLog per protocol while hospitalized Blood sugars controlled HbA1c 7.19 October 2022 Continue oral meds Restless leg syndrome on ropinirole DVT Px SQ Lovenox Discharge to acute rehab Admission and Anticipated Discharge Date Admission Date: December 23, 2022 Subjective ff up for acute CVA with dysphagia, L sided weakness, etc seen sitting up in bed, comfortable states he continues to feel improved overall everyday no problems with swallowing, had banana, jelly for breakfast no chest pain, dyspnea, palpitations, dizziness no other new focal neuro deficits no other symptoms Review of Systems Review of Systems: all noted and negative except for above Physical Exam Physical Exam: General- oriented x 3, not in distress, speaks in sentences with no effort or accessory muscle use Eyes- anicteric Neck- no JVD Lungs- clear breath sounds bilaterally, no rales/wheezes Heart- normal rate, regular rhythm; no murmurs Abdomen- normal bowel sounds, nondistended, soft, no tenderness Extremities- no pretibial edema, no calf tenderness Neuro- alert, oriented x 3; L motor strength- 4/5, no other new gross focal neurologic deficits Skin- warm & dry Results & Data Results & Data ([facility]) Vital Signs (Past 12 Hours) Vital Signs Temp Pulse Resp BP Pulse Ox O2 Del Method 01/02/23 08:56 Room Air 01/02/23 07:25 36.8 C 59 L 18 102/62 96 Room Air all noted and reviewed including below
--- NOTE | 2023-01-16 15:20 | Discharge Summary ---
Discharge Summary Date of Service January 16, 2023 delayed entry date of service 01/02 Notes For Next Care Provider Medication Changes From Visit per assessment and plan Admission HPI Per Admitting Provider History obtained from patient and records. Medical history significant for recent ischemic stroke, hypertension, PVD status post surgery, mild aortic stenosis, DM2 on oral medications, restless leg syndrome, BPH. Last confinement [facility] November 08, 2022 to November 13, 2022 for acute right MCA stroke and possible dissection of the right internal carotid artery angioplasty with stent placement and thrombectomy. Stent reocclusion during hospital stay. Mild aortic stenosis found on 2D echo. Hemoglobin A1c noted to be 7.9. Patient discharged to [facility] facility where he stayed for 2 weeks before returning home. Since being home the last few weeks, patient appetite not the best. Emesis without abdominal pain. No headache, no chest pain, no SOB. Syncope, no seizures. Good BM as per patient. Some depression but denies suicidality. Patient falling a lot at home after standing. Dizziness described as lightheadedness preceding falls. Patient brought to ER for evaluation. Admission Exam Per Admitting Provider GENERAL: Comfortable, pleasant, mild dysarthria, no respiratory distress SKIN: Normal color, warm HEENT: [place] palpebral conjunctivae, no ptosis, flattened left nasolabial fold (chronic), dry buccal mucosa NECK : Supple, no tenderness CHEST : CTA, no tenderness HEART : RRR, no obvious murmurs ABDOMEN: Some distention, nontender EXTREMITIES : No LE swelling/tenderness, no other conspicuous deformities noted NEUROLOGIC : Coherent, flattened left nasolabial fold (chronic), mild dysarthria, MMTs : RUE/RLE 4/5, LUE/LLE 3/5; gait and stance not assessed Principal Dx & Hospital Course #1 = Principal Diagnosis (1) Vomiting: (1) Vomiting: Plan: per Dr. Chow's notes with addendum: Dysphagia secondary to recent CVA Ileus --> resolved Nausea and Vomiting due to above Mild antral gastritis--biopsied --CT ABD/pelvis:No bowel wall thickening or obstruction. Normal appendix. Colonic diverticulosis. No evidence for acute diverticulitis. Prostatomegaly. --Barium Swallow:[id number] esophageal dysmotility. The patient was unable to swallow the barium pill. --EGD:- Normal esophagus. Empirically dilated. Z-line regular, 35 cm from the incisors. Normal stomach. Erythematous mucosa in the antrum. Biopsied. Normal duodenal bulb and second portion of the duodenum. -- Pathology: Stomach biopsy: Chronic gastritis H. pylori stain: Negative Esophag gross biopsy: Squamous mucosa only, focal parakeratosis, negative for fungi Appreciate GI Input Appreciate speech therapy help Started on PPI Advance to slippery esophageal diet as able Aspiration precautions ENT evaluation/neck CT for finding of prominent tissue near his vocal cords Appreciate neurology input and recommendation Dysphagia is likely secondary to recent stroke and will take a long time to improve He is to comply with speech therapist recommendation Discharge plan: Minced and moist diet Aspiration precautions Continue speech therapy evaluation Continue Protonix daily ENT follow-up to evaluate prominent tissue on the vocal cords Dizziness DD: Due to recent CVA Vs orthostasis Orthostatics positive on 12/22 however now asymptomatic Resolved Multiple falls Ambulatory dysfunction Due to left-sided weakness from CVA Fall precautions PT OT: Needs Rehab Recent right MCA occlusion S/P MCA mechanical thrombectomy Right internal carotid artery occlusion S/P angioplasty and stent Left hemiplegia secondary to above Dysarthria secondary to above Continue aspirin, statin Continue PT and OT and speech therapy Hypertension Blood pressure intermittently low Discontinue lisinopril Monitor blood pressure closely BPH On tamsulosin DM II Hold p.o. meds, Lantus and NovoLog per protocol while hospitalized Blood sugars controlled HbA1c 7.19 October 2022 Continue oral meds Restless leg syndrome on ropinirole DVT Px SQ Lovenox Discharge to acute rehab Discharge Exam General- oriented x 3, not in distress, speaks in sentences with no effort or accessory muscle use Eyes- anicteric Neck- no JVD Lungs- clear breath sounds bilaterally, no rales/wheezes Heart- normal rate, regular rhythm; no murmurs Abdomen- normal bowel sounds, nondistended, soft, no tenderness Extremities- no pretibial edema, no calf tenderness Neuro- alert, oriented x 3; L motor strength- 4/5, no other new gross focal neurologic deficits Skin- warm & dry Updated Medication List Medication Instructions Recorded Confirmed Type aspirin 81 mg tablet,delayed 81 mg PO QAM 12/21/22 12/21/22 History release atorvastatin 40 mg tablet 40 mg PO QAM 12/21/22 12/21/22 History empagliflozin 10 mg tablet 10 mg PO QAM 12/21/22 12/21/22 History metformin 500 mg tablet 500 mg PO BIDWMEAL 12/21/22 12/21/22 History ropinirole 2 mg tablet 3 mg PO HS 12/21/22 12/21/22 History tamsulosin 0.4 mg capsule 0.4 mg PO QAM 12/21/22 12/21/22 History Hospital Stay Data Consultations 12/21/22 23:09 ED Decision to Admit Stat 12/24/22 09:25 Consult Gastroenterology Routine 12/26/22 13:55 Consult Anesthesiology Routine 12/31/22 12:11 Consult Neurology Routine Procedures Performed Operation Date: 12/27/22 17:45 Actual Procedures p EGD Biopsy Dilatation - Kavitha Cary MD Diagnostic Imagining Performed 12/21/22 19:38 CT Abd and Pelvis [CT abd pelvis IV con only] Stat ABDOMEN AND PELVIS CT WITH IV CONTRAST CT DOSE: 503.65 mGy.cm HISTORY: Nausea. Vomiting., can not eat, eval for SBO TECHNIQUE: Multiaxial CT images of the abdomen and pelvis were performed following the use of intravenous contrast. A dose lowering technique was utilized adhering to the principles of ALARA. COMPARISON STUDY: None. FINDINGS: Mild dependent changes seen within the lung bases. No pneumoperitoneum. No pneumatosis. No acute fractures identified. There is a small hiatus hernia. Cholecystectomy. The liver, spleen, adrenal glands, and pancreas are unremarkable. No hydronephrosis. The left kidney enhances normally. There are 2 hypodense lesions within the right kidney which favor cysts. The largest in the lower pole measures 2.2 cm. No retroperitoneal lymphadenopathy. The main portal vein is patent. There is a left circumaortic renal vein. The bladder is unremarkable. The prostate gland is enlarged. There are fat- containing bilateral inguinal hernias. Colonic diverticulosis. No evidence for acute diverticulitis. No bowel wall thickening or obstruction. Normal appendix. IMPRESSION: 1. No bowel wall thickening or obstruction. 2. Normal appendix. 3. Colonic diverticulosis. No evidence for acute diverticulitis. 4. Prostatomegaly. ACT 112: Negative or not required by law. 12/25/22 10:17 FL barium swallow Routine COMPARISON STUDY: No prior. TECHNIQUE: A standard air contrast barium esophagram is performed. Multiple spot images of the esophagus are acquired both upright and prone. FINDINGS: The patient swallowed barium without difficulty. The patient was unable to swallow the barium pill. There is [id number] esophageal dysmotility. The mucosal pattern is normal. There is no evidence of intrinsic or extrinsic mass lesion. No aspiration was seen. The gastroesophageal junction distended normally. No gastroesophageal reflux could be elicited by having the patient perform the Valsalva maneuver. Fluoroscopy time: 1.5 minutes. Exposure: 56.53 mGy Fluoroscopic images: 13 spot images and 2 cine loops IMPRESSION: 1. [id number] esophageal dysmotility. 2. The patient was unable to swallow the barium pill. ACT 112: Negative or not required by law. Pending Results Patient Have Any Pending Studies at Discharge: No Discharge Instructions Given to Patient (Per Discharging Provider) Minced and moist, slippery diet Follow speech therapy recommendations Continue speech therapy Aspiration precautions placed Continue Protonix daily Follow-up with ENT for evaluation of prominent tissues in the vocal cord seen on CAT scan Monitor blood pressure daily Blood pressure tends to be on the lower side Encourage to drink plenty of fluids Please refer to accompanying discharge summary for further details. Total Time Total Time Spent Total Time Spent (In Minutes): >30 minutes
== END 2023-01-02 14:14 | DRG 57 ==
LOC: 3W 16:56 → ED 16:56 → 3W 12-22 03:02 → SUATTDRO 12-23 14:18 → 3W 12-25 04:59